=== PATIENT | male | born 1965 | race Caucasian/White ===

== ENCOUNTER 2020-01-20 07:25 | Emergency (ER) | payer SELFPAY ==
[2020-01-20 07:30] VITALS: BP 172/94; PULSE 78; RESP 16; O2SAT 100
[2020-01-20 08:03] VITALS: TEMP 36.7
--- NOTE | 2020-01-20 08:05 | ED.MALEGU ---
HPI - Male Genitourinary General Chief complaint: Urogenital-Male Stated complaint: blood clot in urine Time Seen by Provider: 01/20/20 08:01 Source: patient Mode of arrival: Ambulatory Limitations: no limitations History of Present Illness HPI Narrative: This is a 54-year-old male with no known medical issues comes in for blood clots in his urine. Patient noticed changes about 3:00 a.m. in the morning on Tuesday morning, he states he has continued to have blood in his urine since then. He denies any other symptoms other than some mild stinging with urination the urethra. He denies fevers, he denies any abdominal or flank pain. No nausea or vomiting, no testicular pain, no discharge, he has not had any frequency, and states that he has had some mild sense of urgency recently. Patient has not had similar symptoms in the past. He does not take any medications or anticoagulants regularly. He did have a ?hole in his heart? repaired at the age of [age] but denies any other past surgical history. He denies any known drug allergies. He does not smoke, occasional alcohol, occasional THC. He works as an journeyman electrician pv installer locally. Related Data Previous Rx's Medication Instructions Recorded sulfamethoxazole-trimethoprim 1 tab PO BID #20 tab 01/20/20 [Bactrim DS] Allergies Allergy/AdvReac Type Severity Reaction Status Date / Time No Known Drug Allergies Allergy Verified 01/20/20 07:41 Review of Systems Review of Systems ROS Unobtainable: All systems reviewed & are unremarkable except as noted in HPI and below Patient History Social History Smoking Status: Never smoker Smoking Status: Never smoker alcohol intake frequency: 0-2 drinks per day Substance Use Type: marijuana Exam Narrative Exam Narrative: GENERAL: Alert and oriented x three, well-nourished, well-appearing male in no acute distress. HEENT: Head normocephalic, atraumatic, EOMI, pupils reactive, face symmetric, moist mucous membranes NECK: Supple, full range of motion CARDIOVASCULAR: Regular rate and rhythm without murmurs, rubs or gallops. RESPIRATORY: Breath sounds equal bilaterally, no wheezes rales or rhonchi. ABDOMEN: Soft, nontender. Normoactive bowel sounds all 4 quadrants. No guarding or rebound, rigidity, no mass : No CVA tenderness EXTREMITIES: Normal range of motion, no clubbing or edema. Neurovascularly intact NEUROLOGICAL: Cranial nerves II through XII grossly intact. Moving all extremities. Normal gait. SKIN: Warm, dry, no petechiae, no rashes or lesions. Initial Vital Signs Initial Vital Signs: Vital Signs Pulse Rate 78 01/20/20 07:30 Respiratory Rate 16 01/20/20 07:30 Blood Pressure 172/94 H 01/20/20 07:30 Pulse Oximetry 100 01/20/20 07:30 Course Orders Ordered: ED Orders 01/20/20 08:07 Ictotest Urine Stat UA Complete [Urinalysis and Microscopic] Stat Urine Culture Stat Vital Signs Vital signs: Vital Signs - 8 hr 01/20/20 07:30 01/20/20 08:03 01/20/20 09:10 Temperature 98.1 F Pulse Rate 78 66 Respiratory Rate 16 16 Blood Pressure 172/94 H 127/71 Pulse Oximetry 100 100 MDM - Male Genitourinary Lab Data Attestation: I reviewed the patient's lab results. Labs: Lab Results 01/20/20 Range/Units 08:07 Urine Color Yenni Urine Appearance Cloudy Urine pH 6.5 (4.5-8.0) Ur Specific [place] 1.025 (1.000-1.035) Urine Protein 3+ H (Negative) Urine Glucose (UA) Negative (Negative) g/dL Urine Ketones 1+ H (NEGATIVE) Urine Occult Blood 3+ H (Negative) Urine Nitrate Positive (Negative) Urine Bilirubin 2+ H (NEGATIVE) Ur Bilirubin Confirm Negative (Negative) Urine Urobilinogen 4.0 H (0.2) E.U./dL Ur Leukocyte Esterase 1+ H (NEGATIVE) Urine RBC >100/hpf (0-5/HPF) Urine WBC 10-30/hpf H (0-5/HPF) Ur Squamous Epith Cells 1-5 /hpf (0-5/HPF) Urine Bacteria Moderate (10-30) H (None) Ur Culture Indicated? Specimen cultured [facility] Narrative Medical decision making narrative: Urinalysis is positive for gross hematuria as well as blood and rbc's greater than 100, he has leukocyte esterase as well as nitrate positive with 10-30 wbc's and moderate bacteria. Urine was sent for culture. Discussed with patient at this time I would treat him for a bladder infection. We did discuss that he does need follow-up with recheck of his urine to make sure that all hematuria has cleared and that his infection has cleared. If he continued to have asymptomatic hematuria he would require some additional workup in the future. He does not have a primary care was given options locally but encouraged to return to the ER if he has any new or worsening symptoms. Discharge Plan Departure Patient Disposition: Home Clinical Impression: Acute UTI Hematuria Qualifiers: Hematuria type: gross Qualified Code(s): R31.0 - Gross hematuria Discharge Date/Time: 01/20/20 08:50 Instructions: DI for Urinary Tract Infection (UTI), DI for Hematuria Activity Restrictions/Additional Instructions: Your urinalysis today shows changes consistent with a bladder infection or UTI. Start antibiotics today and take until completely gone. I would recommend follow-up in the next 10-14 days for recheck of your urine to make sure that hematuria and infection has cleared. You may call the physician provider number at [phone] to establish with a primary care or you may call the included provider for options to establish. If you develop fevers, back or abdominal pain, persistent vomiting, lightheadedness or passing out, inability to urinate, increasing frequency and large amounts of blood or other new or concerning symptoms return to the ER. Prescriptions: New sulfamethoxazole-trimethoprim [Bactrim DS] 800-160 mg tablet 1 tab PO BID Qty: 20 RF: 0
[2020-01-20 08:14] LABS: Bilirubin Urine UA 2+ (NEGATIVE); Glucose Urine UA NEGATIVE (Negative); Ketones Urine UA 1+ (NEGATIVE); Leukocyte Esterase Urine UA 1+ (NEGATIVE); Nitrite Urine UA POSITIVE (Negative); Occult Blood Urine UA 3+ (Negative); Protein Urine UA 3+ (Negative); Specific Gravity Urine UA 1.025 (1.000-1.035); pH Urine UA 6.5 (4.5-8.0)
[2020-01-20 08:21] LABS: Bacteria Urine Moderate (10-30); Culture Indicated Urine Specimen Cultured; RBC Urine >100/HPF (0-5/HPF); Squamous Epithelial Cell Urine 1-5 /HPF (0-5/HPF); WBC Urine 10-30/HPF (0-5/HPF)
[2020-01-20 08:48] LABS: Appearance Urine UA CLOUDY; Color Urine UA Amber
[2020-01-20 08:49] LABS: Ictotest Urine Negative (Negative)
[2020-01-20 09:10] VITALS: BP 127/71; PULSE 66; RESP 16; O2SAT 100
== END 2020-01-20 08:50 | disposition home or self-care (01) ==
PROVIDERS: Emergency Provider Emergency Medicine
DX: N30.01 Acute cystitis with hematuria (principal)
CPT/HCPCS: 81001; 87077; 87086; 87185; 87186; 99281; 99282

== ENCOUNTER 2020-02-24 23:42 | Emergency (ER) | payer OTHER, MEDICAID, SELFPAY ==
[2020-02-25 00:05] VITALS: BP 184/92; PULSE 72; RESP 18; TEMP 36.8; O2SAT 99; BMI 26.6
[2020-02-25] MEDS: SODIUM CHLORIDE 0.9% 1,000 ML 1000 ML IV (00:21)
[2020-02-25] MEDS: HYDROMORPHONE 0.5 MG INJ IV ×2 (00:22→02:05)
--- NOTE | 2020-02-25 00:22 | ED.ABDPAIN ---
HPI - Abdominal Pain General Chief Complaint: Abdominal Pain Stated Complaint: bladder inf, pain in testicle has tumor Time Seen by Provider: 02/24/20 23:46 Source: patient Mode of arrival: Ambulatory Limitations: no limitations History of Present Illness HPI narrative: 55-year-old male nonsmoker presents with significant lower abdominal pain, trouble bowel movements and right testicular pain worsening over the past day or 2. He was seen and evaluated by his primary care provider and had a urinalysis suggesting urine infection has been on antibiotics for a few days. Lab work suggested a slight bump in his creatinine to just over 2. He was recently seen here with a chief complaint of hematuria in not only had treatment for a urine infection but also referral to urology. He had an outpatient CT suggesting a posterior bladder mass that was concerning for malignancy. He denies any fever chills nor nausea or vomiting. He does still have the ability to make urine and denies any dysuria, frequency or urgency. MD complaint: abdominal pain Onset (ago): day(s) Related Data Previous Rx's Medication Instructions Recorded sulfamethoxazole-trimethoprim 1 tab PO BID #20 tab 01/20/20 [Bactrim DS] Allergies Allergy/AdvReac Type Severity Reaction Status Date / Time No Known Drug Allergies Allergy Verified 01/20/20 07:41 Review of Systems Constitutional Constitutional: Denies chills, Denies fatigue, Denies fever(s), Denies frequent falls, Denies lethargy and Denies weakness Eyes Eyes: Denies change in vision, Denies eye discharge, Denies irritation and Denies loss of vision ENT Ears, Nose, Mouth, and Throat: Denies change in voice, Denies dizziness, Denies neck pain, Denies sore throat and Denies throat swelling Cardiovascular Cardiovascular: Denies chest pain, Denies irregular heart rhythm, Denies lightheadedness, Denies palpitations, Denies dyspnea, Denies dyspnea on exertion and Denies orthopnea Respiratory Respiratory: Denies cough, Denies dyspnea, Denies dyspnea on exertion and Denies wheezing Gastrointestinal Gastrointestinal: Reports abdominal pain, Denies change in bowel habits, Denies diarrhea, Denies nausea and Denies vomiting Genitourinary Genitourinary: Reports testicular pain Musculoskeletal Musculoskeletal: Denies neck pain and Denies numbness Integumentary/Breasts Skin/Breast: Denies pruritus, Denies erythema, Denies rash and Denies wounds Neurologic Neurologic: Denies behavioral changes, Denies confusion, Denies dizziness, Denies frequent falls, Denies loss of vision, Denies numbness and Denies weakness Psychiatric Psychiatric: Denies anxiety, Denies behavioral changes, Denies confusion, Denies depression, Denies homicidal ideation and Denies suicidal ideation Endocrine Endocrine: Denies fatigue, Denies flushing and Denies palpitations Hematologic/Lymphatic Hematologic/Lymphatic: Denies easy bruising Allergic/Immunologic Allergic/Immunologic: Denies urticaria, Denies throat swelling and Denies wheezing Patient History Social History Smoking Status: Never smoker Smoking Status: Never smoker alcohol intake frequency: 0-2 drinks per day Substance Use Type: marijuana Exam Narrative Exam Narrative: GENERAL: [55] year old patient appears stated age. Well-nourished, well-developed patient, in mild distress. HEAD: Atraumatic. Normocephalic. EYES: Pupils equal round and reactive. Extraocular motions intact. No scleral icterus. No injection or drainage. ENT: Nose without bleeding, purulent drainage. Throat without erythema, tonsillar hypertrophy or exudate. Airway patent. NECK: Trachea midline. Non tender CARDIOVASCULAR: Regular rate and rhythm without murmurs, gallops, or rubs. RESPIRATORY: Clear to auscultation. Breath sounds equal bilaterally. No wheezes, rales, or rhonchi. GASTROINTESTINAL: Abdomen soft, non-tender, nondistended. : fully descended testicles, R tender to palpation, no swelling, redness or other external manifestation of disease EXTREMITIES: No edema or joint tenderness. BACK: Nontender without deformity or crepitance. No flank tenderness. NEURO: AOx3. SKIN: No rash or erythema of visible areas Initial Vital Signs Initial Vital Signs: Vital Signs Temperature 98.3 F 02/25/20 00:05 Pulse Rate 72 02/25/20 00:05 Respiratory Rate 18 02/25/20 00:05 Blood Pressure 184/92 H 02/25/20 00:05 Pulse Oximetry 99 02/25/20 00:05 Course Orders Ordered: Discontinued Medications Hydromorphone HCl (Dilaudid) 0.5 mg IV NOW ONE Stop: 02/25/20 00:16 Last Admin: 02/25/20 00:22 Dose: 0.5 mg Documented by: LATONIA Hydromorphone HCl (Dilaudid) 0.5 mg IV NOW ONE Stop: 02/25/20 02:02 Last Admin: 02/25/20 02:05 Dose: 0.5 mg Documented by: LATONIA Sodium Chloride (Normal Saline 0.9%) 1,000 mls @ 1,000 mls/hr IV BOLUS ONE Stop: 02/25/20 01:04 Last Admin: 02/25/20 02:20 Dose: Not Given Documented by: LATONIA Sodium Chloride (Normal Saline 0.9%) 1,000 mls @ 1,000 mls/hr IV BOLUS ONE Stop: 02/25/20 01:14 Last Infusion: 02/25/20 02:01 Dose: 0 mls/hr Documented by: Infusion: 02/25/20 00:56 Dose: 1,000 mls/hr Documented by: Infusion: 02/25/20 00:56 Dose: 0 mls/hr Documented by: Admin: 02/25/20 00:21 Dose: 1,000 mls/hr Documented by: LATONIA Consultations Consultation #1: Dr. Chiang contacted as customer operations specialist urologist for Dr. Flynn. Case reviewed and she requests transfer to [facility] and admission to hospitalist. Keep NPO Consultation #2: Dr. Moreno happy to accept. Vital Signs Vital signs: Vital Signs - 8 hr 02/25/20 00:05 02/25/20 02:56 Temperature 98.3 F Pulse Rate 72 75 Respiratory Rate 18 16 Blood Pressure 184/92 H Blood Pressure [Left Arm] 163/78 H Pulse Oximetry 99 99 MDM - Abdominal Pain Lab Data Result diagrams: 02/25/20 00:12 02/25/20 00:12 Labs: Lab Results 02/25/20 02/25/20 02/25/20 Range/Units 00:01 00:12 00:12 WBC 13.6 H (4.5-11.0) X10^3/uL RBC 3.68 L (4.5-5.9) X10^6/uL Hgb 11.3 L (13.5-17.5) g/dL Hct 33.8 L (41-53) % MCV 92.0 (80-100) fL MCH 30.8 (26-34) PG MCHC 33.5 (30-36) % RDW 12.3 (11.6-14.8) % Plt Count 396 (150-400) X10^3/uL Neut % (Auto) 81.2 H (50-75) % Lymph % (Auto) 10.1 L (25-40) % [place] % (Auto) 6.0 (3-14) % Eos % (Auto) 2.1 (2-4) % Baso % (Auto) 0.6 (0-2) % Neut # (Auto) 77891 H (6955-5988) /uL Lymph # (Auto) 1400 (1166-2102) /uL [place] # (Auto) 800 (0-900) /uL Eos # (Auto) 300 (0-450) /uL Baso # (Auto) 100 (0-100) /uL Sodium 138 (137-145) mmol/L Potassium 4.0 (3.4-5.1) mmol/L Chloride 107 (98-107) mmol/L Carbon Dioxide 22 (22-32) mmol/L BUN 40 H (9-20) mg/dL Creatinine 5.22 H (0.66-1.25) mg/dL Estimated GFR 11.5 L (>60) mL/min BUN/Creatinine Ratio 7.7 (6-22) Glucose 136 H (70-100) mg/dL Calcium 8.8 (8.4-10.2) mg/dL Urine Color Yellow Urine Appearance Clear Urine pH 6.0 (4.5-8.0) Ur Specific [place] 1.010 (1.000-1.035) Urine Protein Trace H (Negative) Urine Glucose (UA) Negative (Negative) g/dL Urine Ketones Negative (NEGATIVE) Urine Occult Blood 2+ H (Negative) Urine Nitrate Negative (Negative) Urine Bilirubin Negative (NEGATIVE) Urine Urobilinogen 0.2 (0.2) E.U./dL Ur Leukocyte Esterase Negative (NEGATIVE) Urine RBC 1-5/hpf (0-5/HPF) Urine WBC 1-5/hpf (0-5/HPF) Ur Squamous Epith Cells 0-1 /hpf (0-5/HPF) Urine Bacteria None seen (None) WBC Casts 0-1/lpf (None) Ur Culture Indicated? Cult not indicated COVID-19 PCR (Negative) 02/25/20 Range/Units 02:53 WBC (4.5-11.0) X10^3/uL RBC (4.5-5.9) X10^6/uL Hgb (13.5-17.5) g/dL Hct (41-53) % MCV (80-100) fL MCH (26-34) PG MCHC (30-36) % RDW (11.6-14.8) % Plt Count (150-400) X10^3/uL Neut % (Auto) (50-75) % Lymph % (Auto) (25-40) % [place] % (Auto) (3-14) % Eos % (Auto) (2-4) % Baso % (Auto) (0-2) % Neut # (Auto) (7054-9081) /uL Lymph # (Auto) (9750-7682) /uL [place] # (Auto) (0-900) /uL Eos # (Auto) (0-450) /uL Baso # (Auto) (0-100) /uL Sodium (137-145) mmol/L Potassium (3.4-5.1) mmol/L Chloride (98-107) mmol/L Carbon Dioxide (22-32) mmol/L BUN (9-20) mg/dL Creatinine (0.66-1.25) mg/dL Estimated GFR (>60) mL/min BUN/Creatinine Ratio (6-22) Glucose (70-100) mg/dL Calcium (8.4-10.2) mg/dL Urine Color Urine Appearance Urine pH (4.5-8.0) Ur Specific [place] (1.000-1.035) Urine Protein (Negative) Urine Glucose (UA) (Negative) g/dL Urine Ketones (NEGATIVE) Urine Occult Blood (Negative) Urine Nitrate (Negative) Urine Bilirubin (NEGATIVE) Urine Urobilinogen (0.2) E.U./dL Ur Leukocyte Esterase (NEGATIVE) Urine RBC (0-5/HPF) Urine WBC (0-5/HPF) Ur Squamous Epith Cells (0-5/HPF) Urine Bacteria (None) WBC Casts (None) Ur Culture Indicated? COVID-19 PCR Negative (Negative) Imaging Data US Testicles: Radiologist's Impression: [address] [address] Ultrasound Report Signed Patient: Anish Schultz [facility]#: [id number] : 1965Acct:[id number] Age/Sex: 55 / MDate of Service: 02/25/20 Loc: ED Accession Number: [id number] Procedure: US scrotum Ordering Provider: Juan Francisco Concepcion D.O. PROCEDURE: US SCROTUM INDICATIONS: RIGHT TESTICULAR PAIN TECHNIQUE: Real-time scanning was performed of the scrotum and testicles, with image documentation. Color and pulse Doppler interrogation was performed of both testicles. COMPARISON: None. FINDINGS: Right: Testicle is normal in size at 5.2 x 2.4 x 2.9 cm, and homogenous in echotexture. Epididymis is normal in overall size and morphology. No hydrocele or varicoceles. Overlying scrotal skin is normal in thickness. Left: Testicle is normal in size at 4.7 x 2.3 x 2.9 cm, and homogeneous in echotexture. Epididymis is normal in overall size and morphology. No hydrocele or varicoceles. Overlying scrotal skin is normal in thickness. Doppler: Color and pulse Doppler demonstrate normal and symmetric arterial flow in both testicles. IMPRESSION: 1. Normal sonographic study of the scrotum. Specifically, no evidence of testicular torsion. Concordant with preliminary interpretation. Dictated by: John Antoine M.D. on 02/25/2020 at 9:14 Approved by: John Antoine M.D. on 02/25/2020 at 9:23 CT scan - abdomen/pelvis: Radiologist's Impression: Chart [facility] Diagnostics DATE TYPE STATUS REF RANGE/AUTHOR Hx 02/25/20 12:03 ct kub 02/25/20 00:49 Ken Santizo 02/25/20 00:34 John AntoineAnish 55, M0 1965 DEP ER, Main ED 170.18cm 77.111kg BMI: 26.6kg/m? Abdominal Pain Search Chart No Data to Display ONSET 02/25/20 03:30 Anish Schultz 55 M [address] [address] [address] Scan Report Signed Patient: Anish Schultz [facility]#: [id number] : 1965Acct:[id number] Age/Sex: 55 / MDate of Service: 02/25/20 Loc: ED Accession Number: [id number] Procedure: CT abdomen pelvis wo con Ordering Provider: Juan Francisco Concepcion D.O. PROCEDURE: CT ABDOMEN PELVIS WO CON INDICATIONS: severe abdominal pain, known bladder outlet mass TECHNIQUE: Noncontrast 5 mm thick sections acquired from the diaphragms to the symphysis. 5 mm coronal and sagittal reformats were then performed. For radiation dose reduction, the following was used: automated exposure control, adjustment of mA and/or kV according to patient size. COMPARISON: None. FINDINGS: Image quality: Excellent. ABDOMEN: Lung bases: Lung bases are clear. Heart size is normal. Solid organs: Liver is normal in size. 3 x 2.3 cm hypodense lesion is noted involving anterior segment of right hepatic lobe concerning for metastatic liver lesion. Gallbladder is within normal limits. Pancreas is normal in contours. Spleen is normal in size. No adrenal nodules. Bilateral kidneys are enlarged with moderate to severe bilateral hydronephrosis and hydroureter extending to the level of bilateral UVJs. Mild bilateral perinephric fat stranding is also seen. Peritoneum and bowel: Unenhanced bowel loops demonstrate normal wall thickness and caliber. No free fluid or air. A small hiatal hernia is seen. Mild fecal stasis in the colon is noted. Nodes and vessels: No retroperitoneal or mesenteric adenopathy by size criteria. Aorta and inferior vena cava are normal in caliber. Miscellaneous: No ventral hernias. PELVIS: Genitourinary: Lobulated bladder wall thickening is noted more prominent involving posterior bladder wall and appears to encase bilateral UVJs, underlying bladder wall mass cannot be excluded. Enlarged prostate gland with mild mass effect of floor of urinary bladder is also seen. Miscellaneous: Left inguinal hernia is seen containing fat only. No gross inguinal lymphadenopathy is seen. Bones: No suspicious bony lesions. No vertebral body compression fractures. IMPRESSION: 1. Lobulated bladder wall thickening with concerning of posterior wall mass encasing bilateral UVJs, suggest clinical correlation. 2. Moderate to severe bilateral hydronephrosis and hydroureter with bilateral perinephric fat stranding extending to the level of UVJs. No obstructing renal stone is seen. 3. Hypodense lesion involving right hepatic lobe as above, concerning for liver metastatic disease. Dictated by: Ken Santizo M.D. on 02/25/2020 at 8:36 Approved by: eKn Santizo M.D. on 02/25/2020 at 8:42 Discharge Plan Departure Patient Disposition: [facility] Clinical Impression: Acute bilateral obstructive uropathy, Acute kidney injury Discharge Date/Time: 02/25/20 03:38 Prescriptions: No Action sulfamethoxazole-trimethoprim [Bactrim DS] 800-160 mg tablet 1 tab PO BID Qty: 20 RF: 0
[2020-02-25 00:27] LABS: Add Manual Diff / Slide Review NO; Basophils Absolute Auto 100 /uL (0-100); Basophils Percent Auto 0.6 % (0-2); Eosinophils Absolute Auto 300 /uL (0-450); Eosinophils Percent Auto 2.1 % (2-4); Hematocrit 33.8 % (41-53); Hemoglobin 11.3 g/dL (13.5-17.5); Lymphocytes Absolute Auto 1400 /uL (1100-4500); Lymphocytes Percent Auto 10.1 % (25-40); Mean Corpuscular HGB Conc 33.5 % (30-36); Mean Corpuscular Hemoglobin 30.8 PG (26-34); Monocytes Absolute Auto 800 /uL (0-900); Neutrophils Absolute Auto 11100 /uL (1500-7000); Neutrophils Percent Auto 81.2 % (50-75); Platelet Count 396 X10^3/uL (150-400); Red Blood Cell Count 3.68 X10^6/uL (4.5-5.9); Red Cell Distribution Width 12.3 % (11.6-14.8); White Blood Cell Count 13.6 X10^3/uL (4.5-11.0)
[2020-02-25 00:27] LABS: Bacteria Urine None Seen
[2020-02-25 00:33] LABS: BUN Creatinine Ratio 7.7 (6-22); Blood Urea Nitrogen 40 mg/dL (9-20); Calcium 8.8 mg/dL (8.4-10.2); Carbon Dioxide 22 mmol/L (22-32); Chloride 107 mmol/L (98-107); Estimated Glomerular Filt Rate 11.5 mL/min (>60); Glucose 136 mg/dL (70-100); HEMOLYSIS < 15 (0-50); Sodium 138 mmol/L (137-145)
--- NOTE | 2020-02-25 00:34 | DI.US.S_ITS ---
PROCEDURE: US SCROTUM INDICATIONS: RIGHT TESTICULAR PAIN TECHNIQUE: Real-time scanning was performed of the scrotum and testicles, with image documentation. Color and pulse Doppler interrogation was performed of both testicles. COMPARISON: None. FINDINGS: Right: Testicle is normal in size at 5.2 x 2.4 x 2.9 cm, and homogenous in echotexture. Epididymis is normal in overall size and morphology. No hydrocele or varicoceles. Overlying scrotal skin is normal in thickness. Left: Testicle is normal in size at 4.7 x 2.3 x 2.9 cm, and homogeneous in echotexture. Epididymis is normal in overall size and morphology. No hydrocele or varicoceles. Overlying scrotal skin is normal in thickness. Doppler: Color and pulse Doppler demonstrate normal and symmetric arterial flow in both testicles. IMPRESSION: 1. Normal sonographic study of the scrotum. Specifically, no evidence of testicular torsion. Concordant with preliminary interpretation. Dictated by: John Antoine M.D. on 02/25/2020 at 9:14 Approved by: John Antoine M.D. on 02/25/2020 at 9:23
[2020-02-25 00:40] LABS: Appearance Urine UA CLEAR; Bilirubin Urine UA NEGATIVE (NEGATIVE); Color Urine UA YELLOW; Glucose Urine UA NEGATIVE (Negative); Ketones Urine UA NEGATIVE (NEGATIVE); Leukocyte Esterase Urine UA NEGATIVE (NEGATIVE); Nitrite Urine UA NEGATIVE (Negative); Occult Blood Urine UA 2+ (Negative); Protein Urine UA TRACE (Negative); Urobilinogen Urine UA 0.2 E.U./dL (0.2)
--- NOTE | 2020-02-25 00:49 | DI.CT.S_ITS ---
PROCEDURE: CT ABDOMEN PELVIS WO CON INDICATIONS: severe abdominal pain, known bladder outlet mass TECHNIQUE: Noncontrast 5 mm thick sections acquired from the diaphragms to the symphysis. 5 mm coronal and sagittal reformats were then performed. For radiation dose reduction, the following was used: automated exposure control, adjustment of mA and/or kV according to patient size. COMPARISON: None. FINDINGS: Image quality: Excellent. ABDOMEN: Lung bases: Lung bases are clear. Heart size is normal. Solid organs: Liver is normal in size. 3 x 2.3 cm hypodense lesion is noted involving anterior segment of right hepatic lobe concerning for metastatic liver lesion. Gallbladder is within normal limits. Pancreas is normal in contours. Spleen is normal in size. No adrenal nodules. Bilateral kidneys are enlarged with moderate to severe bilateral hydronephrosis and hydroureter extending to the level of bilateral UVJs. Mild bilateral perinephric fat stranding is also seen. Peritoneum and bowel: Unenhanced bowel loops demonstrate normal wall thickness and caliber. No free fluid or air. A small hiatal hernia is seen. Mild fecal stasis in the colon is noted. Nodes and vessels: No retroperitoneal or mesenteric adenopathy by size criteria. Aorta and inferior vena cava are normal in caliber. Miscellaneous: No ventral hernias. PELVIS: Genitourinary: Lobulated bladder wall thickening is noted more prominent involving posterior bladder wall and appears to encase bilateral UVJs, underlying bladder wall mass cannot be excluded. Enlarged prostate gland with mild mass effect of floor of urinary bladder is also seen. Miscellaneous: Left inguinal hernia is seen containing fat only. No gross inguinal lymphadenopathy is seen. Bones: No suspicious bony lesions. No vertebral body compression fractures. IMPRESSION: 1. Lobulated bladder wall thickening with concerning of posterior wall mass encasing bilateral UVJs, suggest clinical correlation. 2. Moderate to severe bilateral hydronephrosis and hydroureter with bilateral perinephric fat stranding extending to the level of UVJs. No obstructing renal stone is seen. 3. Hypodense lesion involving right hepatic lobe as above, concerning for liver metastatic disease. Dictated by: Ken Santizo M.D. on 02/25/2020 at 8:36 Approved by: Ken Santizo M.D. on 02/25/2020 at 8:42
[2020-02-25 01:06] LABS: RBC Urine 1-5/HPF (0-5/HPF); Squamous Epithelial Cell Urine 0-1 /HPF (0-5/HPF); WBC Urine 1-5/HPF (0-5/HPF); White Blood Cell Casts Urine 0-1/LPF
[2020-02-25 01:07] LABS: Culture Indicated Urine Cult Not Indicated
[2020-02-25 02:56] VITALS: BP 163/78; PULSE 75; RESP 16; O2SAT 99
[2020-02-25 03:00] VITALS: BP 144/77; PULSE 82; RESP 16; O2SAT 98
[2020-02-25 03:30] VITALS: BP 153/74; PULSE 84; RESP 16; TEMP 37.1; O2SAT 98
[2020-02-25 03:52] LABS: COVID19 -Nasal RAPID Negative (Negative)
== END 2020-02-25 03:38 | disposition short-term general hospital (02) ==
PROVIDERS: Emergency Provider Emergency Medicine
DX: N13.8 Other obstructive and reflux uropathy (principal); N17.9 Acute kidney failure, unspecified; N50.811 Right testicular pain; Z11.59 Encounter for screening for other viral diseases
CPT/HCPCS: 36415; 51798; 74176; 76870; 80048; 81001; 85025; 87635; 96361; 96374; 96376; 99284; 99285; J1170

== ENCOUNTER → 2020-03-04 13:16 | Outpatient (CLI) | payer OTHER, MEDICAID, SELFPAY ==
[2020-03-05 09:47] LABS: COVID19 Sendout Not Detected (Not Detect)
== END ==
PROVIDERS: Visit Provider Registered Nurse
DX: Z01.812 Encounter for preprocedural laboratory examination (principal)
CPT/HCPCS: 87635

== ENCOUNTER 2020-06-11 14:50 | Emergency (ER) | payer OTHER, MEDICAID, SELFPAY ==
[2020-06-11] VITALS (10 sets, daily range): BP systolic 104–148; BP diastolic 59–78; PULSE 77–94; RESP 5–21; TEMP 36.4; O2SAT 95–100
[2020-06-11] MEDS: SODIUM CHLORIDE 0.9% 1,000 ML 1000 ML IV (15:21)
[2020-06-11] MEDS: LIDOCAINE 1% (PF) 2 ML INJ (15:21)
[2020-06-11] MEDS: HYDROMORPHONE 0.5 MG INJ IV ×2 (15:22→17:19)
[2020-06-11] MEDS: KETOROLAC 60 MG/2 ML VIAL 15 MG IV (15:22)
[2020-06-11] MEDS: ONDANSETRON 4 MG/2 ML INJ IV (15:23)
[2020-06-11 15:44] LABS: Hemoglobin 10.3 g/dL (13.5-17.5); Mean Corpuscular HGB Conc 34.4 % (30-36); Mean Corpuscular Hemoglobin 30.3 PG (26-34); Mean Corpuscular Volume 88.1 fL (80-100); Platelet Count 355 X10^3/uL (150-400); Red Blood Cell Count 3.41 X10^6/uL (4.5-5.9); Red Cell Distribution Width 18.7 % (11.6-14.8)
[2020-06-11 15:54] LABS: Alanine Aminotransferase 18 IU/L (<50); Albumin 4.2 g/dL (3.5-5.0); Albumin Globulin Ratio 1.3 (1.0-2.8); Alkaline Phosphatase 92 U/L (38-126); Aspartate Aminotransferase 18 IU/L (17-59); BUN Creatinine Ratio 25.5 (6-22); Bilirubin Total 0.5 mg/dL (0.2-1.3); Blood Urea Nitrogen 24 mg/dL (9-20); Calcium 9.4 mg/dL (8.4-10.2); Carbon Dioxide 26 mmol/L (22-32); Chloride 98 mmol/L (98-107); Estimated Glomerular Filt Rate > 60.0 mL/min (>60); Globulin 3.2 g/dL (1.7-4.1); Glucose 119 mg/dL (70-100); HEMOLYSIS < 15 (0-50); Lactate (Lactic Acid) 1.8 mmol/L (0.7-2.1); Potassium 3.6 mmol/L (3.4-5.1); Sodium 136 mmol/L (137-145); Total Protein 7.4 g/dL (6.3-8.2)
[2020-06-11 15:56] LABS: Add Manual Diff / Slide Review YES; White Blood Cell Count 1.8 X10^3/uL (4.5-11.0)
[2020-06-11 16:08] LABS: Neutrophils Absolute Manual 72 /uL (3000-5900); Total Cells Counted 50
[2020-06-11 16:09] LABS: Anisocytosis 1+
--- NOTE | 2020-06-11 16:41 | ED.GENADULT ---
HPI - General Adult General Chief complaint: Upper Respiratory Symptoms Stated complaint: states can't swallow Time Seen by Provider: 06/11/20 14:54 Source: patient Mode of arrival: Ambulatory History of Present Illness HPI narrative: 5-year-old gentleman a history of bladder cancer currently finishing around 4 of 6 of chemotherapy. Presents with increasingly sore throat for the last 2 days. It is becoming so sore he is having trouble swallowing. He describes no fevers. Has had a slight nonproductive cough, no chills no abdominal pain no chest pain or palpitations. He does not feel like food is getting stuck he does feel like his taste is significantly diminished. Had 6 recent Covid tests all of which have been negative, all part of his cancer care. His son accompanies him and notes that after 2 days of chemo on Tuesday and Tuesday usually is feeling better by Tuesday. This time we are to Tuesday and he is continuing to feel worse. He beginning to feel a bit dehydrated but notes that he is still making urine and is having no difficulties with diarrhea or significant constipation. Related Data Previous Rx's Medication Instructions Recorded clotrimazole 10 mg MM 5XD #100 tab 06/11/20 Allergies Allergy/AdvReac Type Severity Reaction Status Date / Time No Known Drug Allergies Allergy Verified 06/11/20 15:04 Review of Systems Review of Systems Narrative: Remainder of review of systems including constitutional, ENT, cardiovascular, respiratory, GI, , musculoskeletal, skin, neurologic and psychiatric systems reviewed and are unremarkable except as noted in HPI. Patient History Medical History Bladder cancer (Acute) Social History Smoking Status: Current some day smoker Smoking Status: Current some day smoker alcohol intake frequency: 0-2 drinks per day Substance Use Type: marijuana Exam Narrative Exam Narrative: General: Thin, able speak in full sentences but clearly has difficulty swallowing due to throat pain HEENT: Moist mucous membranes, normal sclera with reactive pupils, glossy red tongue, erythematous pharynx with white plaques over the left tonsillar pillars pair it minor cervical adenopathy. Respiratory: Lungs are clear to auscultation, no wheezing no rales no rhonchi. Full and symmetrical air movement Chest: Port, left upper anterior wall, healing nicely Cardiac: Regular rate and rhythm no murmurs no bruits Abdomen: Soft nontender good bowel tones, no flank pain Skin: Warm and dry, no rashes Neurologic: Grossly neurologically intact with no obvious asymmetries or abnormalities, globally weak Extremities: No trauma, well perfused Psych: Cooperative, appropriate insight and affect Initial Vital Signs Initial Vital Signs: Vital Signs Pulse Rate 94 H 06/11/20 14:52 Pulse Oximetry 98 06/11/20 14:52 Course Orders Ordered: ED Orders 06/11/20 15:00 Throat Culture Stat 06/11/20 15:30 Complete Blood Count AUTO DIFF Stat Comprehensive Metabolic Panel Stat Lactate (Lactic Acid) Stat 06/11/20 15:50 Blood Culture Stat Heparin Sodium (Porcine) (Heparin Flush (Port)) 500 unit IV PRN PRN PRN Reason: Flush Discontinued Medications Clotrimazole (Mycelex Yumiko) 10 mg PO NOW ONE Stop: 06/11/20 17:05 Last Admin: 06/11/20 17:19 Dose: 10 mg Documented by: PANCHITO Hydromorphone HCl (Dilaudid) 0.5 mg IV NOW ONE Stop: 06/11/20 15:11 Last Admin: 06/11/20 15:22 Dose: 0.5 mg Documented by: JOANNE Hydromorphone HCl (Dilaudid) 0.5 mg IV NOW ONE Stop: 06/11/20 17:05 Last Admin: 06/11/20 17:19 Dose: 0.5 mg Documented by: PANCHITO Sodium Chloride (Normal Saline 0.9%) 1,000 mls @ 1,000 mls/hr IV BOLUS ONE Stop: 06/11/20 16:09 Last Infusion: 06/11/20 17:12 Dose: 0 mls/hr Documented by: Admin: 06/11/20 15:21 Dose: 1,000 mls/hr Documented by: JOANNE Ketorolac Tromethamine (Toradol) 15 mg IV NOW ONE Stop: 06/11/20 15:11 Last Admin: 06/11/20 15:22 Dose: 15 mg Documented by: JOANNE Lidocaine HCl (Xylocaine 1% (Pf)) 2 ml INJ NOW ONE Stop: 06/11/20 15:11 Last Admin: 06/11/20 15:21 Dose: 2 ml Documented by: JOANNE Methylprednisolone (Solu-Medrol 125 Mg Vial) 125 mg IV NOW ONE Stop: 06/11/20 17:05 Last Admin: 06/11/20 17:19 Dose: 125 mg Documented by: PANCHITO Ondansetron HCl (Zofran) 4 mg IV NOW ONE Stop: 06/11/20 15:11 Last Admin: 06/11/20 15:23 Dose: 4 mg Documented by: JOANNE Vital Signs Vital signs: Vital Signs - 8 hr 06/11/20 14:52 06/11/20 14:55 06/11/20 14:58 Temperature 97.5 F L Pulse Rate 94 H 88 89 Respiratory Rate 13 17 Blood Pressure 133/78 104/59 L Pulse Oximetry 98 100 100 06/11/20 15:00 06/11/20 15:30 06/11/20 16:00 Temperature Pulse Rate 89 90 78 Respiratory Rate 15 18 16 Blood Pressure 148/77 H 123/73 Pulse Oximetry 100 100 98 06/11/20 16:01 06/11/20 16:30 06/11/20 17:00 Temperature Pulse Rate 81 77 86 Respiratory Rate 13 5 L 21 Blood Pressure 143/74 H 138/77 144/76 H Pulse Oximetry 95 98 100 06/11/20 17:30 Temperature Pulse Rate 86 Respiratory Rate 17 Blood Pressure 141/73 H Pulse Oximetry 99 Medical Decision Making Medical Records Medical records reviewed: Yes I reviewed the patient's medical records. Lab Data Lab results reviewed: Yes I reviewed the patient's lab results. Result diagrams: 06/11/20 15:30 06/11/20 15:30 Labs: Lab Results 06/11/20 06/11/20 06/11/20 Range/Units 15:30 15:30 15:30 WBC 1.8 L* (4.5-11.0) X10^3/uL RBC 3.41 L (4.5-5.9) X10^6/uL Hgb 10.3 L (13.5-17.5) g/dL Hct 30.0 L (41-53) % MCV 88.1 (80-100) fL MCH 30.3 (26-34) PG MCHC 34.4 (30-36) % RDW 18.7 H (11.6-14.8) % Plt Count 355 (150-400) X10^3/uL Neut % (Auto) Not Reportable Lymph % (Auto) Not Reportable Mccone % (Auto) Not Reportable Eos % (Auto) Not Reportable Baso % (Auto) Not Reportable Lymph # (Auto) Not Reportable Mccone # (Auto) Not Reportable Baso # (Auto) Not Reportable Total Counted 50 Seg Neutrophils % 4.0 L (38-70) % Lymphocytes % (Manual) 88.0 H (25-45) % Monocytes % (Manual) 6.0 (2-11) % Eosinophils % (Manual) 2.0 (2-4) % Neutrophils # (Manual) 72 L (7867-7298) /uL RBC Morphology See below Anisocytosis 1+ H Sodium 136 L (137-145) mmol/L Potassium 3.6 (3.4-5.1) mmol/L Chloride 98 (98-107) mmol/L Carbon Dioxide 26 (22-32) mmol/L BUN 24 H (9-20) mg/dL Creatinine 0.94 (0.66-1.25) mg/dL Estimated GFR > 60.0 (>60) mL/min BUN/Creatinine Ratio 25.5 H (6-22) Glucose 119 H (70-100) mg/dL Lactate 1.8 (0.7-2.1) mmol/L Calcium 9.4 (8.4-10.2) mg/dL Total Bilirubin 0.5 (0.2-1.3) mg/dL AST 18 (17-59) IU/L ALT 18 (<50) IU/L Alkaline Phosphatase 92 (38-126) U/L Total Protein 7.4 (6.3-8.2) g/dL Albumin 4.2 (3.5-5.0) g/dL Globulin 3.2 (1.7-4.1) g/dL Albumin/Globulin Ratio 1.3 (1.0-2.8) Point of Care Testing Rapid Strep A Negative Point of care testing: Point of Care Testing Rapid Strep A Negative MDM Narrative Medical decision making narrative: 55-year-old gentleman with increasing throat pain for the last 48 hours. Rapid strep is negative. White count is low at 1.8 consistent of his chemotherapy pooja. No evidence of sepsis at this time. He is feeling better after hydration, IV Dilaudid and IV Toradol. Clinical exam is most consistent with thrush rather than an acute bacterial pharyngitis. A throat culture has been sent and if it does return positive then antibiotics will need to be started. In the meantime will continue to treat this is thrush with clotrimazole troches is. Will also give him a single dose of steroids to help with inflammation and pain so that he is able to keep himself hydrated. Discussed using Tylenol and trying the liquid caps cut open with the liquid in a small bit of fluid so that swallowing isn't as much of an issue. He has both pain and nausea medicine at home We did discuss sepsis and concerns for infection in light of his chemotherapy. I encouraged him to return with any worsening symptoms and would have a low threshold for beginning antibiotic treatment as well. Discharge Plan Departure Patient Disposition: Home Clinical Impression: Esophageal thrush, Oral thrush Bladder cancer Qualifiers: Bladder location: unspecified site Qualified Code(s): C67.9 - Malignant neoplasm of bladder, unspecified Neutropenia Qualifiers: Neutropenia type: secondary to cancer chemotherapy Qualified Code(s): D70.1 - Agranulocytosis secondary to cancer chemotherapy Instructions: DI for Thrush, Sarah Esophagitis Activity Restrictions/Additional Instructions: Thank you for coming in today Your clinical exam looks like you have thrush of both your mouth and down your esophagus. I will give you a prescription for clotrimazole troches his. The idea is to let the meld in your mouth and keep the liquid close to your mouth your tongue and let it dribble down your throat to treat the surface where the yeast is growing For pain, Tylenol might actually be effective for you. Using liquid Tylenol caps and cutting them open to get the liquid out may be easier than trying to swallow them. You can use both pain and nausea medicine that you have available to you at home. It is important to try to keep as hydrated as possible. If you have any signs or symptoms that are getting worse including weakness, confusion any fevers chills or sweats you need to return to the emergency room immediately I hope you heal quickly Prescriptions: New clotrimazole 10 mg yumiko 10 mg MM 5XD Qty: 100 RF: 0
[2020-06-11] MEDS: CLOTRIMAZOLE TROCHE 10 MG PO (17:19)
[2020-06-11] MEDS: methylPREDNISolone 125 MG/2 ML VIAL IV (17:19)
[2020-06-14 05:48] LABS: Acinetobacter baumannii Not Detected (Not Detect); Enterobacteriaceae species Not Detected (Not Detect); Enterococcus species Not Detected (Not Detect); Listeria monocytogenes Not Detected (Not Detect); Staphylococcus species Not Detected (Not Detect); Streptococcus agalactiae (Gr B Not Detected (Not Detect); Streptococcus pneumonia Not Detected (Not Detect); Streptococcus pyogenes (Gr A) Not Detected (Not Detect); Streptococcus species Not Detected (Not Detect)
[2020-06-14 05:49] LABS: Candida albicans Not Detected (Not Detect); Candida glabrata Not Detected (Not Detect); Candida krusei Not Detected (Not Detect); Candida parapsilosis Not Detected (Not Detect); Candida tropicalis Not Detected (Not Detect); E. coli Not Detected (Not Detect); Enterobacter cloacae complex Not Detected (Not Detect); Haemophilus influenzae Not Detected (Not Detect); Neisseria meningitidis Not Detected (Not Detect); Proteus species Not Detected (Not Detect); Pseudomonas aeruginosa Not Detected (Not Detect); Serratia marcescens Not Detected (Not Detect)
== END 2020-06-11 18:23 | disposition home or self-care (01) ==
PROVIDERS: Emergency Provider Emergency Medicine
DX: B37.81 Candidal esophagitis (principal); C67.9 Malignant neoplasm of bladder, unspecified; B37.0 Candidal stomatitis; D70.1 Agranulocytosis secondary to cancer chemotherapy; R05 Cough
CPT/HCPCS: 36415; 80053; 83605; 85025; 87040; 87070; 87150; 87205; 87880; 96361; 96374; 96375; 96376; 99284; J1170; J1642; J1885; J2405; J2930

== ENCOUNTER → 2020-11-06 10:06 | Outpatient (CLI) | payer OTHER, MEDICAID, SELFPAY ==
--- NOTE | 2020-11-06 10:21 | DI.RAD.S_ITS ---
PROCEDURE: XR LUMBAR SPINE 2-3V INDICATIONS: lower back pain TECHNIQUE: 3 views of the lumbar spine were acquired. COMPARISON: [facility], CT, CT KUB, 04/09/2020, 12:28. FINDINGS: Bones: 5 [id number] vertebrae are present. There is loss of normal lumbar lordosis. No acute vertebral body compression fractures. No suspicious bony lesions. Multilevel lumbar spondylitic changes most pronounced at L4-5 and L5-S1. There is moderate disc space loss and degenerative endplate changes at L5-S1. Moderate minimal lower lumbar facet arthrosis. Suggestion of moderate narrowing of the neural foramen at L5-S1. Soft tissues: Overlying bowel gas pattern is normal. No suspicious soft tissue calcifications. IMPRESSION: 1. Lumbar spondylitic cute osseous abnormalities. 2. Moderate multilevel lumbar spondylosis most severe at L4-5 and L5-S1 with suspected moderate neural foraminal narrowing at L5-S1. Dictated by: Joel Bojorquez M.D. on 11/07/2020 at 13:07 Approved by: Joel Bojorquez M.D. on 11/07/2020 at 13:10
[2020-11-06 11:00] LABS: Add Manual Diff / Slide Review NO; Basophils Absolute Auto 200 /uL (0-100); Basophils Percent Auto 1.2 % (0-2); Eosinophils Absolute Auto 400 /uL (0-450); Eosinophils Percent Auto 2.8 % (2-4); Hematocrit 32.1 % (41-53); Hemoglobin 10.2 g/dL (13.5-17.5); Lymphocytes Absolute Auto 1700 /uL (1100-4500); Lymphocytes Percent Auto 12.5 % (25-40); Mean Corpuscular HGB Conc 31.8 % (30-36); Mean Corpuscular Hemoglobin 27.4 PG (26-34); Mean Corpuscular Volume 86.3 fL (80-100); Monocytes Absolute Auto 1000 /uL (0-900); Monocytes Percent Auto 6.9 % (3-14); Neutrophils Absolute Auto 10500 /uL (1500-7000); Neutrophils Percent Auto 76.6 % (50-75); Platelet Count 550 X10^3/uL (150-400); Red Blood Cell Count 3.72 X10^6/uL (4.5-5.9); Red Cell Distribution Width 15.9 % (11.6-14.8); White Blood Cell Count 13.7 X10^3/uL (4.5-11.0)
[2020-11-06 11:13] LABS: Alanine Aminotransferase 13 IU/L (<50); Albumin 3.7 g/dL (3.5-5.0); Albumin Globulin Ratio 0.9 (1.0-2.8); Alkaline Phosphatase 92 U/L (38-126); Aspartate Aminotransferase 20 IU/L (17-59); BUN Creatinine Ratio 20.7 (6-22); Bilirubin Total 0.2 mg/dL (0.2-1.3); Blood Urea Nitrogen 36 mg/dL (9-20); Calcium 10.7 mg/dL (8.4-10.2); Carbon Dioxide 23 mmol/L (22-32); Chloride 105 mmol/L (98-107); Cholesterol 181 mg/dL (140-199); Estimated Glomerular Filt Rate 40.8 mL/min (>60); Globulin 4.2 g/dL (1.7-4.1); Glucose 142 mg/dL (70-100); HDL Cholesterol 32 mg/dL (40-60); HEMOLYSIS < 15 (0-50); LDL Cholesterol Calculated 129 mg/dL (<100); Potassium 3.5 mmol/L (3.4-5.1); Sodium 136 mmol/L (137-145); Total Protein 7.9 g/dL (6.3-8.2); Triglycerides 101 mg/dL (35-150)
== END ==
PROVIDERS: PCP Registered Nurse; Referring Provider Registered Nurse; Visit Provider Registered Nurse
DX: Z00.00 Encounter for general adult medical examination without abnormal findings (principal); Z85.51 Personal history of malignant neoplasm of bladder; M54.5 Low back pain
CPT/HCPCS: 36415; 72100; 80053; 80061; 85025

== ENCOUNTER 2020-12-08 14:15 | Outpatient (RCR) | payer OTHER, MEDICAID, SELFPAY ==
--- NOTE | 2020-11-14 13:13 | PT.OPPOC ---
Physical, Occupational & Speech Therapy At [facility] Current Diagnoses Low back pain (11/14/20) Strain of adductor muscle, fascia and tendon of right thigh, initial encounter (11/14/20) Visit Care Team Role Provider Type JONATHAN Renner Attending Provider Advanced Behavioral Intervention Specialist Primary Care Provider Referring Provider Specialty: Medical Address: [address] [place] [address], [facility] Email: [email or web address] Plan Of Care PT-OP-T Assessment and Plan Start: 11/14/20 11:57 Freq: Status: Active Protocol: Document 11/14/20 12:45 AMB (Rec: 11/15/20 11:12 AMB [email or web address]) Physical Therapy Assessment Rehab Potential Rehabilitation Potential Fair Evaluation Complexity Number of Personal Factors/Comorbidities 1-2 Number of Body Systems Impaired 4 or More Clinical Presentation at Evaluation Evolving Impairments Impairments Functional Activities, Functional Mobility,Pain,ROM, Strength Goals Three Impairment HEP Short Term Goal (STG) Anish with be independent and consistent with core stabilization and LE stretching home exercise program. STG Duration 4 weeks Two Impairment Strength Short Term Goal (STG) Anish will improve his hip flexor strength to at least 4/ 10. STG Duration 4 weeks Contact Lens Blocker And Cutter Goal (LTG) Anish will lift 20 pounds from floor to waist height with good body mechanics without an increase in pain. LTG Duration 8 weeks One Impairment Activity tolerance Short Term Goal (STG) Anish will sleep for 4 hours without waking due to pain. STG Duration 4 weeks Fpc Goal (LTG) Anish will stand for 30 minutes wiht pain of 5/10 or less. LTG Duration 8 weeks Assessment Summary Assessment Anish attends physical therapy with significant R LE pain. He is under the impression the pain is from lymph node removal at the time of his bladder removal back in June. But the pain did not start until September. He is seeing his oncologist next week. He did recently have a lumbar X-ray which did show suspected foraminal narrowing at L5S1. He does have weakness in his hip, but the high level of pain he is having would be plenty to decrease his ability to activate those muscles. He will benefit from physical therapy for appropriate core stabilization, LE strengthening manual therapy and modalities to reduce his pain and improve his activity tolerance. Physical Therapy Plan Frequency and Duration Frequency of Treatment 2x/Week Duration of Treatment 8 weeks Plan of Care Start Date 11/14/20 Plan of Care End Date 01/09/21 Therapeutic Interventions Therapeutic Interventions Home Exercise Program,Manual Therapy,Neuromuscular Re- education,Self-Care/Home Management,Therapeutic Activities,Therapeutic Exercises Modalities Cold Pack/Ice Massage,Electric Stimulation,Hot Packs, Traction- Mechanical, Ultrasound Next Visit Focus/Plan Next Note Type Treatment Note Next Visit Plan Begin HEP instruction, pt felt long axis distraction of R leg helped decrease pain Plan of Care Dates Plan of Care Start Date 11/14/20 Plan of Care End Date 01/09/21 Electronically Signed by: Isa Baker, KAILA 11/15/20 0207 Please Sign and Return: I have reviewed this Plan of Care and certify that the skilled therapy services above are required to meet the patient?s needs. Physician Signature Date Printed Name and Credentials Clinical Instructor Signature Printed Name and Credentials
--- NOTE | 2020-11-14 13:13 | PT.OIE ---
Current Diagnoses Low back pain (11/14/20) Strain of adductor muscle, fascia and tendon of right thigh, initial encounter (11/14/20) Past Medical History (Last Reviewed 11/06/20 @ 20:35 by JONATHAN Renner) Bladder cancer Visit Care Team Role Provider Type JONATHAN Renner Attending Provider Advanced Home Lending Officer Primary Care Provider Referring Provider Specialty: Medical Address: [address] [place] [address], [facility] Email: [email or web address] Physical Therapy Initial Evaluation PT-OP-A Visit Information Start: 11/14/20 11:57 Freq: Status: Active Protocol: Document 11/14/20 12:45 AMB (Rec: 11/15/20 10:41 AMB [email or web address]) Out-Patient Physical Therapy Visit Information Visit Information Visit Type Initial Evaluation Visit Start Time 12:45 Visit Stop Time 13:30 Total Visit Minutes 45 Visit Number 1 PT-OP-B Current Condition Start: 11/14/20 11:57 Freq: Status: Active Protocol: Document 11/14/20 12:43 AMB (Rec: 11/14/20 13:05 AMB [id number]) Current Condition History of Current Condition Onset Date September 2020 Current Complaints R leg/back pain/numbness History of Current Condition Removed bladder and removed lymph nodes in July 06, 2020 but pain hadn't started at this point- did not difficulty lifting leg up post op. Pain has started the third month after surgery. Groin is the worst pain. Numbness down anterior thigh, worst at the groin. Denies swelling. Woke up at 3:30 am in September and sat straight up because the pain was acute at that time. Denies lifting/ any activity in the day before that would have triggered the pain. Pt very adamant that pain is a result of surgery, and is not coming from back, but did have lumbar Xray, pt states no one has followed up with him on the results of that yet. Prior Treatments and Tests Lumbar X-ray: 11/06/20: Moderate multilevel lumbar spondylosis most severe at L4- 5 and L5-S1 with suspected moderate neural foraminal narrowing at L5-S1. Prior Functional Status Baseline Function- ADL's Independent Baseline Function- Mobility Independent Current Functional Impairments (Reported) Functional Limitations- ADL's Pt reports considerable difficulty sleeping, standing for more than 15 minutes Personal Factors Other Personal Factors That May Effect Recent bladder cancer with Therapy/Recovery removal, previously had chemotherapy for bladder cancer PT-OP-C Subjective Start: 11/14/20 11:57 Freq: Status: Active Protocol: Document 11/14/20 12:45 AMB (Rec: 11/15/20 10:41 AMB [email or web address]) Patient Questionnaires Oswestry Low Back Index Oswestry Score 60 Oswestry Impairment 60 to 79% Impaired (Score 60- 79) OP-PT Pain Assessment Pain Assessment Grid Paper Pain Assessment Grid Completed Yes Location Right Groin Pain Location Details right groin- goes up into back and down into thigh Intensity 7 Scale Used Numeric (0 - 10) Description Sharp Description- Other numb Frequency Constant PT-OP-G Mobility & Gait Start: 11/14/20 11:57 Freq: Status: Active Protocol: Document 11/14/20 12:45 AMB (Rec: 11/15/20 10:53 AMB [email or web address]) OP Gait Assessment Comments Gait Comments Antalgic gait- decreased weightbearing through the right PT-OP-J Posture/Palpation/Skin Start: 11/14/20 11:57 Freq: Status: Active Protocol: Document 11/14/20 12:45 AMB (Rec: 11/15/20 10:53 AMB [email or web address]) Palpation Assessment Location Two Palpation Location R thigh Palpation Findings Tenderness Palpation Details Pt with significant tenderness and pain throughout R anterior hip, not as much through adductors, more iliopsoas. Scar beneath umbilicus and laproscopic at abdomen, denies pain with palpation at scar sites. One Palpation Location lumbar spine Palpation Details pt denies pain with PAs, stiffness especially at L5S1 PT-OP-K Range of Motion Start: 11/14/20 11:57 Freq: Status: Active Protocol: Document 11/14/20 12:45 AMB (Rec: 11/15/20 10:53 AMB [email or web address]) Lumbar Spine Range of Motion Lumbar Spine Active Degrees Testing Position Standing Flexion 50 Extension 10 Lateral Flexion Left 15 Lateral Flexion Right 20 Comments pain with extension, flexion feels better Hip Goniometric Range of Motion Hip Right Passive Comments No pain and full ROM with hip er/ir, hip extension mildly limited by pain PT-OP-M Strength Start: 11/14/20 11:57 Freq: Status: Active Protocol: Document 11/14/20 12:45 AMB (Rec: 11/15/20 10:53 AMB [email or web address]) Hip Strength Hip Manual Muscle Testing Right Flexion (L2) 2+ Poor+ Abduction 3- Fair- Adduction 3- Fair- Left Flexion (L2) 4+ Good+ Abduction 4+ Good+ Adduction 4+ Good+ Knee Strength Knee Manual Muscle Testing Right Flexion (S2) 5 Normal Extension (L3) 5 Normal Left Flexion (S2) 5 Normal Extension (L3) 5 Normal Ankle/Foot Strength Ankle and Foot Manual Muscle Testing Right Dorsiflexion (L4) 5 Normal Left Dorsiflexion (L4) 5 Normal Toe Strength Toe Manual Muscle Testing Right Great Toe Extension 4 Good Left Great Toe Flexion 5 Normal PT-OP-T Assessment and Plan Start: 11/14/20 11:57 Freq: Status: Active Protocol: Document 11/14/20 12:45 AMB (Rec: 11/15/20 11:12 AMB [email or web address]) Physical Therapy Assessment Rehab Potential Rehabilitation Potential Fair Evaluation Complexity Number of Personal Factors/Comorbidities 1-2 Number of Body Systems Impaired 4 or More Clinical Presentation at Evaluation Evolving Impairments Impairments Functional Activities, Functional Mobility,Pain,ROM, Strength Goals Three Impairment HEP Short Term Goal (STG) Anish with be independent and consistent with core stabilization and LE stretching home exercise program. STG Duration 4 weeks Two Impairment Strength Short Term Goal (STG) Anish will improve his hip flexor strength to at least 4/ 10. STG Duration 4 weeks Welder Explosion Goal (LTG) Anish will lift 20 pounds from floor to waist height with good body mechanics without an increase in pain. LTG Duration 8 weeks One Impairment Activity tolerance Short Term Goal (STG) Anish will sleep for 4 hours without waking due to pain. STG Duration 4 weeks Fpc Goal (LTG) Anish will stand for 30 minutes wiht pain of 5/10 or less. LTG Duration 8 weeks Assessment Summary Assessment Anish attends physical therapy with significant R LE pain. He is under the impression the pain is from lymph node removal at the time of his bladder removal back in June. But the pain did not start until September. He is seeing his oncologist next week. He did recently have a lumbar X-ray which did show suspected foraminal narrowing at L5S1. He does have weakness in his hip, but the high level of pain he is having would be plenty to decrease his ability to activate those muscles. He will benefit from physical therapy for appropriate core stabilization, LE strengthening manual therapy and modalities to reduce his pain and improve his activity tolerance. Physical Therapy Plan Frequency and Duration Frequency of Treatment 2x/Week Duration of Treatment 8 weeks Plan of Care Start Date 11/14/20 Plan of Care End Date 01/09/21 Therapeutic Interventions Therapeutic Interventions Home Exercise Program,Manual Therapy,Neuromuscular Re- education,Self-Care/Home Management,Therapeutic Activities,Therapeutic Exercises Modalities Cold Pack/Ice Massage,Electric Stimulation,Hot Packs, Traction- Mechanical, Ultrasound Next Visit Focus/Plan Next Note Type Treatment Note Next Visit Plan Begin HEP instruction, pt felt long axis distraction of R leg helped decrease pain
--- NOTE | 2020-12-08 15:37 | PT.OTN ---
Current Diagnoses Low back pain (12/08/20) Strain of adductor muscle, fascia and tendon of right thigh, initial encounter (12/08/20) Physical Therapy Treatment Note PT-OP-A Visit Information Start: 11/14/20 11:57 Freq: Status: Active Protocol: Document 12/08/20 14:14 AMB (Rec: 12/08/20 15:37 AMB [id number]) Out-Patient Physical Therapy Visit Information Visit Information Visit Type Treatment Note Visit Start Time 14:15 Visit Stop Time 15:00 Total Visit Minutes 45 Visit Number 2 PT-OP-B Current Condition Start: 11/14/20 11:57 Freq: Status: Active Protocol: Document 11/14/20 12:43 AMB (Rec: 11/14/20 13:05 AMB [id number]) Current Condition History of Current Condition Onset Date September 2020 Current Complaints R leg/back pain/numbness History of Current Condition Removed bladder and removed lymph nodes in July 06, 2020 but pain hadn't started at this point- did not difficulty lifting leg up post op. Pain has started the third month after surgery. Groin is the worst pain. Numbness down anterior thigh, worst at the groin. Denies swelling. Woke up at 3:30 am in September and sat straight up because the pain was acute at that time. Denies lifting/ any activity in the day before that would have triggered the pain. Pt very adamant that pain is a result of surgery, and is not coming from back, but did have lumbar Xray, pt states no one has followed up with him on the results of that yet. Prior Treatments and Tests Lumbar X-ray: 11/06/20: Moderate multilevel lumbar spondylosis most severe at L4- 5 and L5-S1 with suspected moderate neural foraminal narrowing at L5-S1. Prior Functional Status Baseline Function- ADL's Independent Baseline Function- Mobility Independent Current Functional Impairments (Reported) Functional Limitations- ADL's Pt reports considerable difficulty sleeping, standing for more than 15 minutes Personal Factors Other Personal Factors That May Effect Recent bladder cancer with Therapy/Recovery removal, previously had chemotherapy for bladder cancer PT-OP-C Subjective Start: 11/14/20 11:57 Freq: Status: Active Protocol: Document 12/08/20 14:14 AMB (Rec: 12/08/20 15:37 AMB [id number]) OP-PT Subjective Patient Comments Patient Comments Anish returns to physical therapy stating that his cancer has returned. He states his oncologist says it is in his pelvis and on his sciatic nerve which is causing his pain. They have been changing his meds around, and he is in a high level of pain right now, he is not going to go through chemo again, he is in a clinical trial for immunotherapy. PT-OP-G Mobility & Gait Start: 11/14/20 11:57 Freq: Status: Active Protocol: Document 11/14/20 12:45 AMB (Rec: 11/15/20 10:53 AMB [email or web address]) OP Gait Assessment Comments Gait Comments Antalgic gait- decreased weightbearing through the right PT-OP-J Posture/Palpation/Skin Start: 11/14/20 11:57 Freq: Status: Active Protocol: Document 11/14/20 12:45 AMB (Rec: 11/15/20 10:53 AMB [email or web address]) Palpation Assessment Location Two Palpation Location R thigh Palpation Findings Tenderness Palpation Details Pt with significant tenderness and pain throughout R anterior hip, not as much through adductors, more iliopsoas. Scar beneath umbilicus and laproscopic at abdomen, denies pain with palpation at scar sites. One Palpation Location lumbar spine Palpation Details pt denies pain with PAs, stiffness especially at L5S1 PT-OP-K Range of Motion Start: 11/14/20 11:57 Freq: Status: Active Protocol: Document 11/14/20 12:45 AMB (Rec: 11/15/20 10:53 AMB [email or web address]) Lumbar Spine Range of Motion Lumbar Spine Active Degrees Testing Position Standing Flexion 50 Extension 10 Lateral Flexion Left 15 Lateral Flexion Right 20 Comments pain with extension, flexion feels better Hip Goniometric Range of Motion Hip Right Passive Comments No pain and full ROM with hip er/ir, hip extension mildly limited by pain PT-OP-M Strength Start: 11/14/20 11:57 Freq: Status: Active Protocol: Document 11/14/20 12:45 AMB (Rec: 11/15/20 10:53 AMB [email or web address]) Hip Strength Hip Manual Muscle Testing Right Flexion (L2) 2+ Poor+ Abduction 3- Fair- Adduction 3- Fair- Left Flexion (L2) 4+ Good+ Abduction 4+ Good+ Adduction 4+ Good+ Knee Strength Knee Manual Muscle Testing Right Flexion (S2) 5 Normal Extension (L3) 5 Normal Left Flexion (S2) 5 Normal Extension (L3) 5 Normal Ankle/Foot Strength Ankle and Foot Manual Muscle Testing Right Dorsiflexion (L4) 5 Normal Left Dorsiflexion (L4) 5 Normal Toe Strength Toe Manual Muscle Testing Right Great Toe Extension 4 Good Left Great Toe Flexion 5 Normal PT-OP-Q Treatments Start: 11/14/20 11:57 Freq: Status: Active Protocol: Document 12/08/20 14:14 AMB (Rec: 12/08/20 15:37 AMB [id number]) Therapeutic Exercises Supine Exercises 3 Supine Exercise Name supine hip abd/add Comments unable 2 Supine Exercise Name long axis hip rotation/ lower trunk rotation Comments decreased pain 1 Supine Exercise Name hamstring, adductor, hip flexor stretches, piriformis stretche Reps/Minutes 10 min Comments increased pain Manual Therapy Treatment Soft Tissue Mobilization 1 Body Location R adductors, hamstring/ piriformis Mobilization Type Manual Lymphatic Drainage, Strumming,Sustained Pressure Intensity/Depth Moderate Body Position Sidelying PT-OP-T Assessment and Plan Start: 11/14/20 11:57 Freq: Status: Active Protocol: Document 12/08/20 14:14 AMB (Rec: 12/08/20 15:37 AMB [id number]) Physical Therapy Assessment Assessment Summary Assessment Discussed pt's pain with him, reports 9-10/10 pain. Slightly improved with manual therapy, but pt is thinking he would rather not continue with therapy at this time considering it would mostly by sx management rather than fixing the problem. So ok with being d/nikolas at this time. Did not meet goals due to cancer returning. Physical Therapy Plan Discharge Physical Therapy Discharge Reasons Change in Medical Status
== END 2020-12-12 08:56 ==
LOC: PHYS 14:15
PROVIDERS: PCP Registered Nurse; Referring Provider Registered Nurse; Visit Provider Registered Nurse
DX: M54.5 Low back pain (principal); S76.211A Strain of adductor muscle, fascia and tendon of right thigh, initial encounter
CPT/HCPCS: 97110; 97140; 97162

== ENCOUNTER 2020-12-11 10:09 | Emergency (ER) | payer OTHER, MEDICAID, SELFPAY ==
[2020-12-11 10:15] VITALS: BP 107/70; PULSE 102; RESP 15; TEMP 36.7; O2SAT 100; BMI 25.8
--- NOTE | 2020-12-11 10:21 | DI.US.S_ITS ---
PROCEDURE: US PERIPH VENOUS LOW EXTREM RT INDICATIONS: PAIN, EDEMA TECHNIQUE: Real-time imaging, as well as color and pulse Doppler interrogation, were performed of the lower extremity deep veins from the inguinal ligament to the popliteal fossa. COMPARISON: None. FINDINGS: Echogenic fully occlusive intraluminal thrombus within the common femoral vein, the deep femoral vein, and the superficial femoral vein as well as the popliteal vein. IMPRESSION: Acute deep venous thrombosis, fully occlusive, within the right femoral and popliteal veins. Dictated by: Adriel Cohn M.D. on 12/11/2020 at 11:10 Approved by: Adriel Cohn M.D. on 12/11/2020 at 11:12
--- NOTE | 2020-12-11 11:07 | ED_ITS ---
HPI - Extremity Problem General Chief complaint: Extremity Problem,Nontraumatic Stated complaint: swelling/pain of right leg x1 day Time Seen by Provider: 12/11/20 11:03 Source: patient Mode of arrival: Wheelchair Limitations: no limitations History of Present Illness HPI Narrative: 55-year-old gentleman with a history of bladder cancer followed at [facility] presents with swelling in the right and leg that started last p.m.. Increasingly sore. No known trauma. No chest pain, dyspnea, orthopnea or palpitations. He denies fevers cough for chills. No vomiting no diarrhea. He notes that his cystostomy site is functioning appropriately. Related Data Previous Rx's Medication Instructions Recorded clotrimazole 10 mg MM 5XD #100 tab 06/11/20 acetaminophen 300 mg-codeine 30 mg 1 tab PO Q6H PRN #21 tab 11/17/20 tablet apixaban See Rx Instructions .ROUTE 12/11/20 .COMPLEX #74 ea Allergies Allergy/AdvReac Type Severity Reaction Status Date / Time No Known Drug Allergies Allergy Verified 12/11/20 10:15 Review of Systems Review of Systems Narrative: Remainder of review of systems including constitutional, ENT, cardiovascular, respiratory, GI, , musculoskeletal, skin, neurologic and psychiatric systems reviewed and are unremarkable except as noted in HPI. Patient History Medical History Bladder cancer (~2019) Surgical History Anesthesia Bladder cancer (~2019) History of open heart surgery (~1970) Family History Father Alzheimer's disease Mother Stroke Social History Smoking Status: Former smoker Smoking Status: Former smoker alcohol intake frequency: holidays/special occasions only Substance Use Type: marijuana Exam Narrative Exam Narrative: General: Healthy appearing, in no acute distress. Able to give a complete and coherent history. Well-nourished well-developed HEENT: Moist mucous membranes, normal sclera with reactive pupils, Respiratory: Lungs are clear to auscultation, no wheezing no rales no rhonchi. Full and symmetrical air movement Cardiac: Regular rate and rhythm no murmurs no bruits Abdomen: Soft, nontender, good bowel tones, no flank pain Skin: Warm and dry, no rashes Neurologic: Grossly neurologically intact with no obvious asymmetries or abnormalities Extremities: No trauma, well perfused. Right leg is significantly more swollen than the left. No redness to suggest infection and no abscess sites. Psych: Cooperative, appropriate insight and affect Initial Vital Signs Initial Vital Signs: Vital Signs Temperature 98.0 F 12/11/20 10:15 Pulse Rate 102 H 12/11/20 10:15 Respiratory Rate 15 12/11/20 10:15 Blood Pressure 107/70 12/11/20 10:15 Pulse Oximetry 100 12/11/20 10:15 Course Orders Ordered: ED Orders 12/11/20 10:21 periph venous low extrem rt Stat 12/11/20 11:37 COVID19 - ADMIT ([employer] swab/PCR) Stat Complete Blood Count AUTO DIFF Stat Comprehensive Metabolic Panel Stat 12/11/20 12:18 CT angio chest PE protocol Stat Discontinued Medications Oxycodone/Acetaminophen (Oxycodone/Acetaminophen 5/325 Tablet) 2 tab PO NOW ONE Stop: 12/11/20 14:07 Vital Signs Vital signs: Vital Signs - 8 hr 12/11/20 10:15 12/11/20 11:57 12/11/20 14:06 Temperature 98.0 F Pulse Rate 102 H 82 91 H Respiratory Rate 15 14 Blood Pressure 107/70 125/70 Pulse Oximetry 100 99 100 MDM - Extremity (Nontraumatic) Lab Data Result diagrams: 12/11/20 11:37 12/11/20 11:37 Labs: Lab Results 12/11/20 12/11/20 12/11/20 Range/Units 11:37 11:37 11:37 WBC 16.2 H (4.5-11.0) X10^3/uL RBC 2.91 L (4.5-5.9) X10^6/uL Hgb 7.9 L (13.5-17.5) g/dL Hct 24.1 L (41-53) % MCV 82.9 (80-100) fL MCH 27.0 (26-34) PG MCHC 32.6 (30-36) % RDW 16.7 H (11.6-14.8) % Plt Count 549 H (150-400) X10^3/uL Neut % (Auto) 77.3 H (50-75) % Lymph % (Auto) 11.5 L (25-40) % Laurel % (Auto) 8.3 (3-14) % Eos % (Auto) 2.7 (2-4) % Baso % (Auto) 0.2 (0-2) % Neut # (Auto) 48383 H (4671-9583) /uL Lymph # (Auto) 1900 (4938-8321) /uL Laurel # (Auto) 1300 H (0-900) /uL Eos # (Auto) 400 (0-450) /uL Baso # (Auto) 0 (0-100) /uL Sodium 134 L (137-145) mmol/L Potassium 4.1 (3.4-5.1) mmol/L Chloride 99 (98-107) mmol/L Carbon Dioxide 26 (22-32) mmol/L BUN 35 H (9-20) mg/dL Creatinine 1.30 H (0.66-1.25) mg/dL Estimated GFR 57.1 L (>60) mL/min BUN/Creatinine Ratio 26.9 H (6-22) Glucose 120 H (70-100) mg/dL Calcium 11.0 H (8.4-10.2) mg/dL Total Bilirubin 0.4 (0.2-1.3) mg/dL AST 23 (17-59) IU/L ALT 22 (<50) IU/L Alkaline Phosphatase 113 (38-126) U/L Total Protein 7.6 (6.3-8.2) g/dL Albumin 3.6 (3.5-5.0) g/dL Globulin 4.0 (1.7-4.1) g/dL Albumin/Globulin Ratio 0.9 L (1.0-2.8) SARS-CoV-2 (PCR) Negative (Negative) Imaging Data CT scan - chest: Radiologist's Impression: FINDINGS: Image quality: Excellent. Pulmonary arteries: Pulmonary arteries are normal in size, and demonstrate no intraluminal filling defects to suggest central pulmonary embolism. Lungs and pleura: Lungs are clear. No pleural effusions or pneumothorax. Central and peripheral airways are patent. Mediastinum: Heart size is normal, without pericardial effusion. No mediastinal or hilar adenopathy. Thoracic aorta is normal in caliber and enhancement. Esophagus is normal in caliber, without hiatal hernia. Bones and chest wall: No suspicious bony lesions. Ribs and thoracic spine appear intact throughout. Thyroid gland appears normal where well seen. No axillary or supraclavicular adenopathy. Port-A-Cath extends in normal position from left- sided approach, Abdomen: Visualized upper abdominal solid organs appear normal in the early arterial phase of enhancement. IMPRESSION: No sign of pulmonary embolus or metastatic disease. Port-A-Cath tip in normal position within the atrial caval junction. Dictated by: Anish Gomes M.D. on 12/11/2020 at 12:54 Approved by: Anish Gomes M.D. on 12/11/2020 at 12:56 US - DVT: Radiologist's Impression: FINDINGS: Echogenic fully occlusive intraluminal thrombus within the common femoral vein, the deep femoral vein, and the superficial femoral vein as well as the popliteal vein. IMPRESSION: Acute deep venous thrombosis, fully occlusive, within the right femoral and popliteal veins. Dictated by: Adriel Cohn M.D. on 12/11/2020 at 11:10 MDM Narrative Medical decision making narrative: 55-year-old gentleman with history of bladder cancer with a proximal DVT and no evidence of expansion or pulmonary embolism. He other than some swelling in the right leg he is asymptomatic. Will start him on apixaban and have confirmed with pharmacy that it is covered and he can pick it up today. Dosing blister pack is started. He is having increased pain in that leg. He currently is on 15 mg of OxyContin twice a day and 5 mg of oxycodone 3 times a day as needed. Will allow him to increase the oxycodone to 10 mg up to 3 times a day. He has an appointment with his cancer doctor tomorrow who is his primary pain prescriber and will review this with him. Questions were answered. Clearly reviewed signs and symptoms of pulmonary embolism on reasons to return to the emergency department. He is safe for discharge Discharge Plan Departure Patient Disposition: Home Clinical Impression: Deep vein thrombosis (DVT) of proximal lower extremity Qualifiers: Chronicity: acute Laterality: right Qualified Code(s): I82.4Y1 - Acute embolism and thrombosis of unspecified deep veins of right proximal lower extremity Instructions: DI for Deep Vein Thrombosis, DI for Pulmonary Embolism Activity Restrictions/Additional Instructions: You do have a blood clot all the way up to your thigh however it does not extend past that and you do not have any blood clot in your lungs. You may find you need to use more of your short-acting oxycodone. You can use 2 at a time if needed. Please discuss this with your oncology doctor with your visit tomorrow, you will need refills. 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
[2020-12-11 11:53] LABS: Add Manual Diff / Slide Review NO; Basophils Absolute Auto 0 /uL (0-100); Basophils Percent Auto 0.2 % (0-2); Eosinophils Absolute Auto 400 /uL (0-450); Eosinophils Percent Auto 2.7 % (2-4); Hematocrit 24.1 % (41-53); Hemoglobin 7.9 g/dL (13.5-17.5); Lymphocytes Absolute Auto 1900 /uL (1100-4500); Lymphocytes Percent Auto 11.5 % (25-40); Mean Corpuscular HGB Conc 32.6 % (30-36); Mean Corpuscular Volume 82.9 fL (80-100); Monocytes Absolute Auto 1300 /uL (0-900); Monocytes Percent Auto 8.3 % (3-14); Neutrophils Absolute Auto 12500 /uL (1500-7000); Neutrophils Percent Auto 77.3 % (50-75); Platelet Count 549 X10^3/uL (150-400); Red Blood Cell Count 2.91 X10^6/uL (4.5-5.9); Red Cell Distribution Width 16.7 % (11.6-14.8); White Blood Cell Count 16.2 X10^3/uL (4.5-11.0)
[2020-12-11 11:57] VITALS: PULSE 82; RESP 14; O2SAT 99
[2020-12-11 12:05] LABS: Alanine Aminotransferase 22 IU/L (<50); Albumin 3.6 g/dL (3.5-5.0); Albumin Globulin Ratio 0.9 (1.0-2.8); Alkaline Phosphatase 113 U/L (38-126); Aspartate Aminotransferase 23 IU/L (17-59); BUN Creatinine Ratio 26.9 (6-22); Bilirubin Total 0.4 mg/dL (0.2-1.3); Blood Urea Nitrogen 35 mg/dL (9-20); Carbon Dioxide 26 mmol/L (22-32); Chloride 99 mmol/L (98-107); Estimated Glomerular Filt Rate 57.1 mL/min (>60); Glucose 120 mg/dL (70-100); HEMOLYSIS < 15 (0-50); Potassium 4.1 mmol/L (3.4-5.1); Sodium 134 mmol/L (137-145); Total Protein 7.6 g/dL (6.3-8.2)
--- NOTE | 2020-12-11 12:18 | DI.CT.S_ITS ---
PROCEDURE: CT ANGIO CHEST PE PROTOCOL INDICATIONS: large LE DVT, bladder cancer history TECHNIQUE: After the administration of intravenous contrast, 2 mm thick sections acquired from the pulmonary apices to the posterior costophrenic angles. 3-dimensional maximum intensity projection (MIP) coronal and sagittal reformats were then acquired through the thorax. For radiation dose reduction, the following was used: automated exposure control, adjustment of mA and/or kV according to patient size. COMPARISON: [facility], CT, CT KUB, 04/09/2020, 12:28. FINDINGS: Image quality: Excellent. Pulmonary arteries: Pulmonary arteries are normal in size, and demonstrate no intraluminal filling defects to suggest central pulmonary embolism. Lungs and pleura: Lungs are clear. No pleural effusions or pneumothorax. Central and peripheral airways are patent. Mediastinum: Heart size is normal, without pericardial effusion. No mediastinal or hilar adenopathy. Thoracic aorta is normal in caliber and enhancement. Esophagus is normal in caliber, without hiatal hernia. Bones and chest wall: No suspicious bony lesions. Ribs and thoracic spine appear intact throughout. Thyroid gland appears normal where well seen. No axillary or supraclavicular adenopathy. Port-A-Cath extends in normal position from left-sided approach, Abdomen: Visualized upper abdominal solid organs appear normal in the early arterial phase of enhancement. IMPRESSION: No sign of pulmonary embolus or metastatic disease. Port-A-Cath tip in normal position within the atrial caval junction. Dictated by: Anish Gomes M.D. on 12/11/2020 at 12:54 Approved by: Anish Gomes M.D. on 12/11/2020 at 12:56
[2020-12-11 12:45] LABS: COVID19 - ADMIT (NP swab/PCR) Negative (Negative)
[2020-12-11 14:06] VITALS: BP 125/70; PULSE 91; O2SAT 100
[2020-12-11] MEDS: OXYCODONE/ACETAMINOPHEN 5/325 TABLET 2 TAB PO (14:14)
[2020-12-11 14:44] VITALS: BP 113/70; PULSE 90; RESP 12; O2SAT 100
== END 2020-12-11 14:46 | disposition home or self-care (01) ==
PROVIDERS: Emergency Provider Emergency Medicine; PCP Registered Nurse
DX: I82.411 Acute embolism and thrombosis of right femoral vein (principal); I82.431 Acute embolism and thrombosis of right popliteal vein; Z85.51 Personal history of malignant neoplasm of bladder; Z20.822 Contact with and (suspected) exposure to COVID-19
CPT/HCPCS: 36415; 71275; 80053; 85025; 87635; 93971; 99284; Q9967

== ENCOUNTER → 2020-12-22 14:59 | Outpatient (CLI) | payer OTHER, MEDICAID, SELFPAY ==
[2020-12-22 15:49] LABS: Add Manual Diff / Slide Review NO; Basophils Absolute Auto 200 /uL (0-100); Basophils Percent Auto 0.5 % (0-2); Eosinophils Absolute Auto 700 /uL (0-450); Eosinophils Percent Auto 2.2 % (2-4); Lymphocytes Absolute Auto 1500 /uL (1100-4500); Lymphocytes Percent Auto 4.9 % (25-40); Mean Corpuscular HGB Conc 31.7 % (30-36); Mean Corpuscular Hemoglobin 26.5 PG (26-34); Mean Corpuscular Volume 83.6 fL (80-100); Monocytes Absolute Auto 1300 /uL (0-900); Monocytes Percent Auto 4.3 % (3-14); Neutrophils Absolute Auto 26900 /uL (1500-7000); Neutrophils Percent Auto 88.1 % (50-75); Platelet Count 879 X10^3/uL (150-400); Red Blood Cell Count 2.63 X10^6/uL (4.5-5.9); Red Cell Distribution Width 17.9 % (11.6-14.8)
[2020-12-22 16:04] LABS: Alanine Aminotransferase 16 IU/L (<50); Albumin 3.2 g/dL (3.5-5.0); Albumin Globulin Ratio 0.9 (1.0-2.8); Alkaline Phosphatase 134 U/L (38-126); Aspartate Aminotransferase 17 IU/L (17-59); BUN Creatinine Ratio 31.6 (6-22); Bilirubin Total 0.5 mg/dL (0.2-1.3); Blood Urea Nitrogen 43 mg/dL (9-20); Carbon Dioxide 23 mmol/L (22-32); Chloride 94 mmol/L (98-107); Estimated Glomerular Filt Rate 54.2 mL/min (>60); Globulin 3.6 g/dL (1.7-4.1); Glucose 125 mg/dL (70-100); HEMOLYSIS < 15 (0-50); Potassium 4.7 mmol/L (3.4-5.1); Sodium 128 mmol/L (137-145); Total Protein 6.8 g/dL (6.3-8.2)
[2020-12-22 16:13] LABS: White Blood Cell Count 30.5 X10^3/uL (4.5-11.0)
[2020-12-22 16:46] LABS: Hypochromasia 1+; Platelet Estimate Increased on smear; Polychromasia 2+
== END ==
PROVIDERS: PCP Registered Nurse; Referring Provider Nurse Practitioner Family; Visit Provider Nurse Practitioner Family
DX: E83.52 Hypercalcemia (principal); D69.6 Thrombocytopenia, unspecified; D72.829 Elevated white blood cell count, unspecified
CPT/HCPCS: 36415; 80053; 85025

== ENCOUNTER 2020-12-22 16:42 | Inpatient (IN) | payer OTHER, MEDICAID, SELFPAY ==
[2020-12-22] VITALS (19 sets, daily range): BP systolic 90–114; BP diastolic 52–64; PULSE 78–96; RESP 11–22; TEMP 36.6–37.1; O2SAT 92–99; BMI 24.8
--- NOTE | 2020-12-22 17:32 | ED.RECABL ---
HPI - Recheck/Abnormal Lab/Rx General Chief Complaint: Recheck/Abnormal Lab/Rx Stated Complaint: ABNORMAL LABS Time Seen by Provider: 12/22/20 17:14 Source: patient Mode of arrival: Wheelchair Related Data Previous Rx's Medication Instructions Recorded clotrimazole 10 mg MM 5XD #100 tab 06/11/20 acetaminophen 300 mg-codeine 30 mg 1 tab PO Q6H PRN #21 tab 11/17/20 tablet apixaban See Rx Instructions .ROUTE 12/11/20 .COMPLEX #74 ea Allergies Allergy/AdvReac Type Severity Reaction Status Date / Time No Known Drug Allergies Allergy Verified 12/11/20 10:15 Patient History Medical History Bladder cancer (~2019) Surgical History Anesthesia Bladder cancer (~2019) History of open heart surgery (~1969) Family History Father Alzheimer's disease Mother Stroke Social History Smoking Status: Former smoker Smoking Status: Former smoker alcohol intake frequency: holidays/special occasions only Substance Use Type: marijuana Exam Initial Vital Signs Initial Vital Signs: Vital Signs Temperature 98.8 F 12/22/20 16:48 Pulse Rate 96 H 12/22/20 16:48 Respiratory Rate 22 12/22/20 16:48 Blood Pressure 90/52 L 12/22/20 16:48 Pulse Oximetry 96 12/22/20 16:48 Course Vital Signs Vital signs: Vital Signs - 8 hr 12/22/20 16:48 12/22/20 16:52 Temperature 98.8 F Pulse Rate 96 H 95 H Respiratory Rate 22 19 Blood Pressure 90/52 L Pulse Oximetry 96 Discharge Plan Departure Prescriptions: No Action acetaminophen-codeine 300-30 mg tablet 1 tab PO Q6H PRN (Reason: pain) Qty: 21 RF: 0 clotrimazole 10 mg yumiko 10 mg MM 5XD Qty: 100 RF: 0 apixaban 5 mg (74 tabs) tablets,dose pack See Rx Instructions .ROUTE .COMPLEX Qty: 74 RF: 0
--- NOTE | 2020-12-22 17:43 | DI.RAD.S_ITS ---
PROCEDURE: XR CHEST 1V INDICATIONS: suspected sepsis TECHNIQUE: One view of the chest was acquired. COMPARISON: None. FINDINGS: Surgical changes and devices: Left chest wall Port-A-Cath tip is in SVC.. Lungs and pleura: Lungs are clear. No pleural effusions or pneumothorax. Mediastinum: Mediastinal contours appear normal. Heart size is normal. Bones and chest wall: No suspicious bony lesions. Overlying soft tissues appear unremarkable. IMPRESSION: No acute cardiopulmonary pathology. Dictated by: Ken Santizo M.D. on 12/22/2020 at 18:48 Approved by: Ken Santizo M.D. on 12/22/2020 at 18:48
[2020-12-22 17:56] LABS: Lactate (Lactic Acid) 2.8 mmol/L (0.7-2.1)
[2020-12-22] MEDS: SODIUM CHLORIDE 0.9% 2,160 ML 720 ML IV (18:00)
[2020-12-22] MEDS: LIDOCAINE 1% (PF) 2 ML (18:11)
[2020-12-22 18:13] LABS: Procalcitonin 3.48 ng/mL (<0.5)
[2020-12-22 18:25] LABS: INR 2.3 (0.9-1.3); Prothrombin Time 25.8 SECONDS (10.1-12.7)
[2020-12-22 18:28] LABS: PTT Partial Thromboplastin Tim 29 SECONDS (26.4-36.2)
--- NOTE | 2020-12-22 18:39 | ED_ITS ---
HPI - Recheck/Abnormal Lab/Rx General Chief Complaint: Recheck/Abnormal Lab/Rx Stated Complaint: ABNORMAL LABS Time Seen by Provider: 12/22/20 17:14 Source: patient Mode of arrival: Wheelchair History of Present Illness HPI narrative: 55-year-old male former smoker with history of bladder cancer presents at the request of his oncology team for the evaluation of abnormal outpatient labs. He was initially diagnosed late last year in completed chemotherapy with subsequent surgery in June. He has continued to be under the care of the [facility] and has just completed his 3rd administration of [place] 7. He is largely felt at his or near his baseline as of late, perhaps a bit fatigued but denies fever, vomiting or diarrhea. He has had some chills and nausea which is not atypical for him. He denies any headache, blurred vision or confusion. He denies any focal neurologic findings such as numbness, tingling or weakness. He denies any chest pain or shortness of breath. He denies abdominal pain or diarrhea. He was called and encouraged to present due to a critically elevated calcium. MD complaint: abnormal lab Symptoms since prior visit: no new symptoms Context: called for abnormal lab result Related Data Home Medications Medication Instructions Recorded Confirmed acetaminophen [Tylenol Extra 1,000 mg PO Q6H PRN 12/22/20 12/22/20 Strength] docusate sodium [Colace] 100 mg PO BID 12/22/20 12/22/20 gabapentin 100 - 300 mg PO TID 12/22/20 12/22/20 morphine 15 mg PO TID 12/22/20 12/22/20 oxycodone 5 - 10 mg PO TID PRN 12/22/20 12/22/20 Previous Rx's Medication Instructions Recorded apixaban See Rx Instructions .ROUTE 12/11/20 .COMPLEX #[id number] ea Allergies Allergy/AdvReac Type Severity Reaction Status Date / Time No Known Drug Allergies Allergy Verified 12/22/20 19:38 Review of Systems Constitutional Constitutional: Reports chills, Denies fatigue, Denies fever(s), Denies frequent falls, Denies lethargy and Denies weakness Eyes Eyes: Denies change in vision, Denies eye discharge, Denies irritation and Denies loss of vision ENT Ears, Nose, Mouth, and Throat: Denies change in voice, Denies dizziness, Denies neck pain, Denies sore throat and Denies throat swelling Cardiovascular Cardiovascular: Denies chest pain, Denies irregular heart rhythm, Denies lightheadedness, Denies palpitations, Denies dyspnea, Denies dyspnea on exertion and Denies orthopnea Respiratory Respiratory: Denies cough, Denies dyspnea, Denies dyspnea on exertion and Denies wheezing Gastrointestinal Gastrointestinal: Denies abdominal pain, Denies change in bowel habits, Denies diarrhea, Denies nausea and Denies vomiting Musculoskeletal Musculoskeletal: Denies neck pain and Denies numbness Integumentary/Breasts Skin/Breast: Denies pruritus, Denies erythema, Denies rash and Denies wounds Neurologic Neurologic: Denies behavioral changes, Denies confusion, Denies dizziness, Denies frequent falls, Denies loss of vision, Denies numbness and Denies weakness Psychiatric Psychiatric: Denies anxiety, Denies behavioral changes, Denies confusion, Denies depression, Denies homicidal ideation and Denies suicidal ideation Endocrine Endocrine: Denies fatigue, Denies flushing and Denies palpitations Hematologic/Lymphatic Hematologic/Lymphatic: Denies easy bruising Allergic/Immunologic Allergic/Immunologic: Denies urticaria, Denies throat swelling and Denies wheezing Patient History Medical History Bladder cancer (~2019) Surgical History Anesthesia Bladder cancer (~2019) History of open heart surgery (~1969) Family History Father Alzheimer's disease Mother Stroke Social History Smoking Status: Former smoker Smoking Status: Former smoker alcohol intake frequency: holidays/special occasions only Substance Use Type: marijuana Exam Narrative Exam Narrative: GENERAL: [55] year old patient appears stated age. Thin, in mild distress. HEAD: Atraumatic. Normocephalic. EYES: Pupils equal round and reactive. Extraocular motions intact. No scleral icterus. No injection or drainage. ENT: Nose without bleeding, purulent drainage. Throat without erythema, tonsillar hypertrophy or exudate. Airway patent. NECK: Trachea midline. Non tender CARDIOVASCULAR: Regular rate and rhythm without murmurs, gallops, or rubs. RESPIRATORY: Clear to auscultation. Breath sounds equal bilaterally. No wheezes, rales, or rhonchi. GASTROINTESTINAL: Abdomen soft, non-tender, nondistended. EXTREMITIES: No edema or joint tenderness. BACK: Nontender without deformity or crepitance. No flank tenderness. NEURO: AOx3. SKIN: No rash or erythema of visible areas Initial Vital Signs Initial Vital Signs: Vital Signs Temperature 98.8 F 12/22/20 16:48 Pulse Rate 96 H 12/22/20 16:48 Respiratory Rate 22 12/22/20 16:48 Blood Pressure 90/52 L 12/22/20 16:48 Pulse Oximetry 96 12/22/20 16:48 Course Orders Ordered: ED Orders 12/22/20 17:25 Lactate (Lactic Acid) Stat Partial Thromboplastin Time Stat Procalcitonin Stat Prothrombin Time INR Stat Type and Screen Stat 12/22/20 17:43 XR chest 1V Stat Blood Culture Stat EKG-12 Lead Stat 12/22/20 18:15 Urinalysis and Microscopic Stat Urine Culture Stat 12/22/20 19:05 COVID19 - ADMIT (RADIO DISC JOCKEY swab/PCR) Stat Acetaminophen (Acetaminophen 325 Mg Tablet) 1,000 mg PO Q8H PRN PRN Reason: Fever/Mild Pain (1-3) Last Admin: 12/22/20 22:05 Dose: 975 mg Documented by: DELISA Apixaban (Apixaban 5 Mg Tablet) 5 mg PO BID [facility] Last Admin: 12/22/20 22:04 Dose: 5 mg Documented by: DELISA Bisacodyl (Bisacodyl 10 Mg Supp) 10 mg MT DAILY PRN PRN Reason: Constipation Docusate Sodium (Docusate 100 Mg Capsule) 100 mg PO BID [facility] Last Admin: 12/22/20 22:04 Dose: 100 mg Documented by: DELISA Heparin Sodium (Porcine) (Heparin 500 Unit/5 Ml Port Flush) 500 unit IV BID [facility] Last Admin: 12/22/20 23:55 Dose: Not Given Documented by: JACKSON Heparin Sodium (Porcine) (Heparin 500 Unit/5 Ml Port Flush) 500 unit IV PRN PRN PRN Reason: Flush Sodium Chloride (Normal Saline 0.9%) 1,000 mls @ 150 mls/hr IV CONT [facility] Last Infusion: 12/22/20 23:59 Dose: 50 mls/hr Documented by: Admin: 12/22/20 20:45 Dose: 150 mls/hr Documented by: DELISA Piperacillin/Tazobactam/Dextrose (Zosyn) 3.375 gm in 50 mls @ 100 mls/hr IV Q6H [facility] Morphine Sulfate (Morphine Er 15 Mg Tablet) 15 mg PO Q8HR [facility] Last Admin: 12/22/20 22:03 Dose: 15 mg Documented by: DELISA Naloxone HCl (Naloxone 0.4 Mg/Ml Vial) 0.2 mg IV Q2MIN PRN PRN Reason: Opiate Reversal Ondansetron HCl (Ondansetron 4 Mg/2 Ml Inj) 4 mg IV Q8HR PRN PRN Reason: Nausea And Vomiting Oxycodone HCl (Oxycodone Ir 5 Mg Tablet) 5 mg PO Q6HR PRN PRN Reason: Pain, Moderate (4-6) Oxycodone HCl (Oxycodone Ir 10 Mg Tablet) 10 mg PO Q6HR PRN PRN Reason: Pain, Severe (7-10) Last Admin: 12/22/20 22:04 Dose: 10 mg Documented by: DELISA Discontinued Medications Sodium Chloride (Normal Saline 0.9%) 2,160 mls @ 720 mls/hr 30 ml/kg infuse over 3 hr (2160 ml) IV NOW ONE Stop: 12/22/20 20:44 Last Infusion: 12/22/20 23:21 Dose: 0 mls/hr Documented by: Infusion: 12/22/20 20:36 Dose: 720 mls/hr Documented by: Admin: 12/22/20 18:00 Dose: 720 mls/hr Documented by: PATRICIO Piperacillin Sod/Tazobactam (Sod 4.5 gm/ Sodium Chloride) 100 mls @ 200 mls/hr IV NOW ONE Stop: 12/22/20 19:44 Last Infusion: 12/22/20 20:06 Dose: 0 mls/hr Documented by: Admin: 12/22/20 19:30 Dose: 200 mls/hr Documented by: PATRICOI Vital Signs Vital signs: Vital Signs - 8 hr 12/22/20 16:52 12/22/20 17:00 12/22/20 17:30 Pulse Rate 95 H 94 H 94 H Respiratory Rate 19 14 19 Blood Pressure Pulse Oximetry 94 93 12/22/20 17:34 12/22/20 17:45 12/22/20 18:00 Pulse Rate 92 H 88 92 H Respiratory Rate 15 17 17 Blood Pressure 95/53 L Pulse Oximetry 97 92 97 12/22/20 18:15 12/22/20 18:16 12/22/20 18:30 Pulse Rate 87 87 90 Respiratory Rate 14 17 21 Blood Pressure 97/57 L 96/62 Pulse Oximetry 95 97 99 12/22/20 18:45 12/22/20 19:00 12/22/20 19:15 Pulse Rate 83 85 81 Respiratory Rate 16 17 11 L Blood Pressure 100/55 L 104/55 L 107/57 L Pulse Oximetry 98 94 99 12/22/20 19:30 12/22/20 19:45 Pulse Rate 80 80 Respiratory Rate 17 18 Blood Pressure 103/55 L 100/58 L Pulse Oximetry 94 92 MDM - Recheck/Abnormal Lab/Rx Lab Data Result diagrams: 12/22/20 22:00 12/22/20 22:00 Labs: Lab Results 12/22/20 12/22/20 12/22/20 Range/Units 17:25 17:25 17:25 PT 25.8 H (10.1-12.7) SECONDS INR 2.3 H (0.9-1.3) APTT 29 (26.4-36.2) SECONDS Lactate 2.8 H (0.7-2.1) mmol/L Magnesium (1.6-2.3) mg/dL Procalcitonin 3.48 H (<0.5) ng/mL Urine Color Urine Appearance Urine pH (4.5-8.0) Ur Specific [place] (1.000-1.035) Urine Protein (Negative) Urine Glucose (UA) (Negative) g/dL Urine Ketones (NEGATIVE) Urine Occult Blood (Negative) Urine Nitrate (Negative) Urine Bilirubin (NEGATIVE) Urine Urobilinogen (0.2) E.U./dL Ur Leukocyte Esterase (NEGATIVE) Urine RBC (0-5/HPF) Urine WBC (0-5/HPF) Ur Squamous Epith Cells (0-5/HPF) Amorphous Sediment Urine Bacteria (None) Urine Mucus (Negative) Ur Culture Indicated? SARS-CoV-2 (PCR) (Negative) Blood Type Antibody Screen Crossmatch 12/22/20 12/22/20 12/22/20 Range/Units 17:25 17:25 18:15 PT (10.1-12.7) SECONDS INR (0.9-1.3) APTT (26.4-36.2) SECONDS Lactate (0.7-2.1) mmol/L Magnesium 2.2 (1.6-2.3) mg/dL Procalcitonin (<0.5) ng/mL Urine Color Yellow Urine Appearance Slightly cloudy Urine pH 7.0 (4.5-8.0) Ur Specific [place] 1.010 (1.000-1.035) Urine Protein Trace H (Negative) Urine Glucose (UA) Negative (Negative) g/dL Urine Ketones Negative (NEGATIVE) Urine Occult Blood 2+ H (Negative) Urine Nitrate Positive (Negative) Urine Bilirubin Negative (NEGATIVE) Urine Urobilinogen 0.2 (0.2) E.U./dL Ur Leukocyte Esterase 3+ H (NEGATIVE) Urine RBC 5-10/hpf H (0-5/HPF) Urine WBC 10-30/hpf H (0-5/HPF) Ur Squamous Epith Cells 0-1 /hpf (0-5/HPF) Amorphous Sediment 1+ Urine Bacteria Moderate (10-30) H (None) Urine Mucus 1+ H (Negative) Ur Culture Indicated? Specimen cultured SARS-CoV-2 (PCR) (Negative) Blood Type B Positive Antibody Screen Negative Crossmatch See Detail 12/22/20 Range/Units 19:05 PT (10.1-12.7) SECONDS INR (0.9-1.3) APTT (26.4-36.2) SECONDS Lactate (0.7-2.1) mmol/L Magnesium (1.6-2.3) mg/dL Procalcitonin (<0.5) ng/mL Urine Color Urine Appearance Urine pH (4.5-8.0) Ur Specific [place] (1.000-1.035) Urine Protein (Negative) Urine Glucose (UA) (Negative) g/dL Urine Ketones (NEGATIVE) Urine Occult Blood (Negative) Urine Nitrate (Negative) Urine Bilirubin (NEGATIVE) Urine Urobilinogen (0.2) E.U./dL Ur Leukocyte Esterase (NEGATIVE) Urine RBC (0-5/HPF) Urine WBC (0-5/HPF) Ur Squamous Epith Cells (0-5/HPF) Amorphous Sediment Urine Bacteria (None) Urine Mucus (Negative) Ur Culture Indicated? SARS-CoV-2 (PCR) Negative (Negative) Blood Type Antibody Screen Crossmatch Imaging Data Chest x-ray: Radiologist's Impression: Anish Schultz 55 M [address] [id number] ReportSigned Patient: Anish Schultz AMR#: [id number]: 1965Acct:[id number]/Sex: 55 / MDate of Service: 12/22/20Loc: EDAccession Number: [id number] Procedure: XR chest 1V Ordering Provider: Glendy Mike MD PROCEDURE: XR CHEST 1V INDICATIONS: suspected sepsis TECHNIQUE: One view of the chest was acquired. COMPARISON: None. FINDINGS: Surgical changes and devices: Left chest wall Port-A-Cath tip is in SVC.. Lungs and pleura: Lungs are clear. No pleural effusions or pneumothorax. Mediastinum: Mediastinal contours appear normal. Heart size is normal. Bones and chest wall: No suspicious bony lesions. Overlying soft tissues appear unremarkable. IMPRESSION: No acute cardiopulmonary pathology. Dictated by: Ken Santizo M.D. on 12/22/2020 at 18:48 Approved by: Ken Santizo M.D. on 12/22/2020 at 18:48 [facility] Narrative Medical decision making narrative: Patient with known bladder cancer presents with critically elevated calcium in the absence of much in the way of symptoms other than some chills and a bit of fatigue. He does have significant other lab abnormalities such as elevated white blood cell count, lactate and evidence of urine infection. He has been given IV fluids and antibiotics. Discharge Plan Departure Patient Disposition: Admitted As Inpatient Clinical Impression: Acute UTI, Sepsis, Acute hyperkalemia Admit Date/Time: 12/22/20 19:51 Admit Provider: Oliverio Oconnell
--- NOTE | 2020-12-22 18:42 | PC.NURSE ---
pt states he has a dvt in rt leg, rt pedal pulse +.
[2020-12-22 19:09] LABS: Bilirubin Urine UA NEGATIVE (NEGATIVE); Color Urine UA YELLOW; Glucose Urine UA NEGATIVE (Negative); Ketones Urine UA NEGATIVE (NEGATIVE); Leukocyte Esterase Urine UA 3+ (NEGATIVE); Nitrite Urine UA POSITIVE (Negative); Occult Blood Urine UA 2+ (Negative); Protein Urine UA TRACE (Negative); Urobilinogen Urine UA 0.2 E.U./dL (0.2)
[2020-12-22 19:10] LABS: Appearance Urine UA Slightly Cloudy
[2020-12-22 19:15] LABS: Amorphous Sediment Urine 1+; Bacteria Urine Moderate (10-30); Mucus Urine 1+ (Negative); RBC Urine 5-10/HPF (0-5/HPF); Squamous Epithelial Cell Urine 0-1 /HPF (0-5/HPF); WBC Urine 10-30/HPF (0-5/HPF)
[2020-12-22 19:16] LABS: Culture Indicated Urine Specimen Cultured
[2020-12-22] MEDS: PIPERACILLIN/TAZO 4.5 GM in SODIUM CHLORIDE 0.9% 100 ML 200 ML IV (19:30)
[2020-12-22 19:46] LABS: Reflexed Lactate in 2 Hours Y
[2020-12-22 20:11] LABS: COVID19 - ADMIT (NP swab/PCR) Negative (Negative)
[2020-12-22 20:12] LABS: Lactate 2HR (Lactic Acid Rflx) 1.1 mmol/L (0.7-2.1)
[2020-12-22] MEDS: SODIUM CHLORIDE 0.9% 1,000 ML 150 ML IV (20:45)
[2020-12-22 20:55] LABS: Magnesium 2.2 mg/dL (1.6-2.3)
[2020-12-22] MEDS: MORPHINE ER 15 MG TABLET PO (22:03)
[2020-12-22] MEDS: DOCUSATE 100 MG CAPSULE PO (22:04)
[2020-12-22] MEDS: OXYCODONE IR 10 MG TABLET PO (22:04)
[2020-12-22] MEDS: APIXABAN 5 MG TABLET PO (22:04)
[2020-12-22] MEDS: ACETAMINOPHEN 325 MG TABLET 1000 MG PO (22:05)
[2020-12-22 22:16] LABS: Hemoglobin 6.4 g/dL (13.5-17.5)
[2020-12-22 22:17] LABS: Hematocrit 20.3 % (41-53)
[2020-12-22 22:28] LABS: BUN Creatinine Ratio 33.6 (6-22); Blood Urea Nitrogen 43 mg/dL (9-20); Calcium 11.5 mg/dL (8.4-10.2); Carbon Dioxide 26 mmol/L (22-32); Chloride 101 mmol/L (98-107); Estimated Glomerular Filt Rate 58.1 mL/min (>60); Glucose 113 mg/dL (70-100); HEMOLYSIS < 15 (0-50); Potassium 4.1 mmol/L (3.4-5.1); Sodium 131 mmol/L (137-145)
--- NOTE | 2020-12-22 23:13 | PC.NURSE ---
Admit Pt arrived from ER to room 228, able to stand at bedside and transfer. Left portacath accessed in ER. NS infusing. Pt has chronic pain control issues and home meds verified. Recent diagnosis of RLE DVT, started elequis, [facility] Urostomy to RLQ. Skin check completed. Call light in reach, FWW at bedside for assist.
--- NOTE | 2020-12-22 23:30 | P.HP_ITS ---
History of Present Illness History of Present Illness Date Patient Seen: 12/22/20 Time Patient Seen: 21:30 Chief complaint: ABNORMAL LABS Narrative: Mr. Anish Schultz is a 55-year-old male with a past medical history of bladder cancer (June 2020), status post bladder resection and prostatectomy with urostomy, status post chemotherapy under the care of [facility] ([facility]) and chronic back pain who presents to the ER at the request of [facility] following routine labs finding an elevated calcium at 12. He has ongoing right leg pain for which he was seen in the emergency department on 12/11/2020 very presented for right lower extremity pain finding a DVT. Venous ultrasound identified occlusive DVT of the right femoral and popliteal veins. The patient was negative for pulmonary emboli. The patient reports no systemic symptoms other than fatigue. He denies complaints of fevers or chills, no body aches or bone pain. He has had no complaints of mental confusion or dizziness. He denies chest pain or palpitations, shortness of breath cough or wheezing. He denies abdominal pain, no changes in bowel habits. His urostomy dysfunction without complication. The patient has ongoing right leg pain and uses crutches or walker for mobility. Upon arrival to the ER the patient's temperature 98.8?, heart rate of 76 blood pressure of 90/52, respiratory rate of 20 with saturation of 96%. Chest x-ray is unremarkable. Twelve lead EKG finds sinus rhythm at a rate of 94 without ectopy or block and nonspecific ST T-wave changes. On laboratory analysis the patient has white count of 30.5 with neutrophils of 26,900 and monocytes elevate d at 1300, hemoglobin is 7.0, hematocrit of 22 and platelets of 879. And has a PT of 25.8, INR of 2.3, PTT of 29. The patient is hyponatremic with a sodium of 128. His BUN is 43 with a creatinine of 1.36. His calcium is 13.0. His nonfasting glucose is 125. He has lactate of 2.8 S down to 1.1 on recheck. His procalcitonin is elevated at 3.48. Urinalysis positive for trace protein, positive for blood, nitrites, leukocyte esterase, WBCs and bacteria. While in the ER the patient receives a sepsis bolus of 30 mL per kg, Zosyn 4.5 g IV and is typed and screened. The patient is admitted to the hospitalist service for hypercalcemia, urosepsis and anemia. Patient History Medical History (Updated 12/23/20 @ 04:15 by JONATHAN Sanders) Adult general medical exam Bladder cancer (~2019) Deep vein thrombosis (DVT) of proximal lower extremity Elevated fasting glucose Hx of bladder cancer Lower back pain Surgical History (Updated 12/23/20 @ 04:15 by JONATHAN Sanders) Anesthesia Bladder cancer (~2019) History of open heart surgery (~1969) History of prostatectomy History of urostomy Family & Social History Family History (Updated 12/23/20 @ 04:15 by JONATHAN Sanders) Father Alzheimer's disease Mother Stroke Safety & Behavioral: Feels Safe in Current Yes Environment Been Physically Hurt or No Threatened By a Person Suicidal Ideation Description None Suicide Plan Description No Plan Tobacco & Substance use: Smoking Status Former smoker alcohol intake frequency holiday/special occasion Substance Use Type marijuana Meds Home Medications and Allergies Home Medications Medication Instructions Recorded Confirmed Type apixaban See Rx Instructions .ROUTE 12/11/20 12/22/20 Rx .COMPLEX #74 ea acetaminophen [Tylenol Extra 1,000 mg PO Q6H PRN 12/22/20 12/22/20 History Strength] docusate sodium [Colace] 100 mg PO BID 12/22/20 12/22/20 History gabapentin 100 - 300 mg PO TID 12/22/20 12/22/20 History morphine 15 mg PO TID 12/22/20 12/22/20 History oxycodone 5 - 10 mg PO TID PRN 12/22/20 12/22/20 History Allergies Allergy/AdvReac Type Severity Reaction Status Date / Time No Known Drug Allergies Allergy Verified 12/22/20 19:38 Review of Systems Review of Systems ROS: Yes All systems reviewed with the patient and are negative except as otherwise documented Exam Vital Signs (past 8 hours): - 12/22/20 19:30 12/22/20 19:45 12/22/20 20:00 Temperature Pulse Rate 80 80 85 Respiratory Rate 17 18 18 Blood Pressure 103/55 L 100/58 L 104/56 L Pulse Oximetry 94 92 95 12/22/20 20:15 12/22/20 20:30 12/22/20 21:08 Temperature 97.8 F Pulse Rate 79 78 83 Respiratory Rate 17 17 18 Blood Pressure 103/57 L 101/56 L 114/64 Pulse Oximetry 93 98 98 12/23/20 00:21 12/23/20 00:30 Temperature 98.6 F Pulse Rate 114 H Respiratory Rate 16 Blood Pressure 119/61 Pulse Oximetry 94 96 Oxygen Delivery Method Room Air Oxygen Flow Rate 0 Narrative Exam Narrative: GENERAL APPEARANCE: well developed, well nourished, in no acute distress. HEENT: Normocephalic, PERRLA, conjunctiva clear, EOMs intact without nystagmus, mucous membranes are pink and dry NECK/THYROID: neck supple, no JVD, no thyromegaly, trachea midline. LYMPH NODES: no cervical or supraclavicular lymphadenopathy. SKIN: [place], warm and dry. HEART: regular rate and rhythm, S1-S2, no murmur, no rubs or gallops, brisk capillary refill, no edema LUNGS: clear to auscultation bilaterally, no coarseness crackles or wheezing, no cough present CHEST: Symmetrical movement, no accessory muscle use, good tidal volume. ABDOMEN: urostomy right upper/mid abdomen, stoma is red and moist, abdomen is soft, nontender to palpation, no organomegaly, active bowel tones BACK: Right low back pain palpation EXTREMITIES: Right leg pain, trace to 1+ edema, mild calf/popliteal tenderness, distal CMS intact, strength 5/5 and symmetrical, no cyanosis or clubbing. NEUROLOGIC: AAO x4, no focal neurologic deficits, cranial nerves II-XII grossly intact, sensation intact to light touch, hearing grossly normal to speech. PSYCH: Good eye contact, briskly interactive, linear thought process, cooperative, appropriate with stable behavior Objective Labs Result Diagrams: 12/22/20 22:00 12/22/20 22:00 Labs: Laboratory Results - last 24 hr 12/22/20 12/22/20 12/22/20 17:25 17:25 17:25 Hgb Hct PT 25.8 H INR 2.3 H APTT 29 Sodium Potassium Chloride Carbon Dioxide BUN Creatinine Estimated GFR BUN/Creatinine Ratio Glucose Lactate 2.8 H Calcium Magnesium Procalcitonin 3.48 H Urine Color Urine Appearance Urine pH Ur Specific [place] Urine Protein Urine Glucose (UA) Urine Ketones Urine Occult Blood Urine Nitrate Urine Bilirubin Urine Urobilinogen Ur Leukocyte Esterase Urine RBC Urine WBC Ur Squamous Epith Cells Amorphous Sediment Urine Bacteria Urine Mucus Ur Culture Indicated? SARS-CoV-2 (PCR) Blood Type Antibody Screen Crossmatch 12/22/20 12/22/20 12/22/20 17:25 17:25 18:15 Hgb Hct PT INR APTT Sodium Potassium Chloride Carbon Dioxide BUN Creatinine Estimated GFR BUN/Creatinine Ratio Glucose Lactate Calcium Magnesium 2.2 Procalcitonin Urine Color Yellow Urine Appearance Slightly cloudy Urine pH 7.0 Ur Specific [place] 1.010 Urine Protein Trace H Urine Glucose (UA) Negative Urine Ketones Negative Urine Occult Blood 2+ H Urine Nitrate Positive Urine Bilirubin Negative Urine Urobilinogen 0.2 Ur Leukocyte Esterase 3+ H Urine RBC 5-10/hpf H Urine WBC 10-30/hpf H Ur Squamous Epith Cells 0-1 /hpf Amorphous Sediment 1+ Urine Bacteria Moderate (10-30) H Urine Mucus 1+ H Ur Culture Indicated? Specimen cultured SARS-CoV-2 (PCR) Blood Type B Positive Antibody Screen Negative Crossmatch See Detail 12/22/20 12/22/20 12/22/20 19:05 19:56 22:00 Hgb 6.4 L* Hct 20.3 L* PT INR APTT Sodium Potassium Chloride Carbon Dioxide BUN Creatinine Estimated GFR BUN/Creatinine Ratio Glucose Lactate 1.1 Calcium Magnesium Procalcitonin Urine Color Urine Appearance Urine pH Ur Specific [place] Urine Protein Urine Glucose (UA) Urine Ketones Urine Occult Blood Urine Nitrate Urine Bilirubin Urine Urobilinogen Ur Leukocyte Esterase Urine RBC Urine WBC Ur Squamous Epith Cells Amorphous Sediment Urine Bacteria Urine Mucus Ur Culture Indicated? SARS-CoV-2 (PCR) Negative Blood Type Antibody Screen Crossmatch 12/22/20 22:00 Hgb Hct PT INR APTT Sodium 131 L Potassium 4.1 Chloride 101 Carbon Dioxide 26 BUN 43 H Creatinine 1.28 H Estimated GFR 58.1 L BUN/Creatinine Ratio 33.6 H Glucose 113 H Lactate Calcium 11.5 H Magnesium Procalcitonin Urine Color Urine Appearance Urine pH Ur Specific [place] Urine Protein Urine Glucose (UA) Urine Ketones Urine Occult Blood Urine Nitrate Urine Bilirubin Urine Urobilinogen Ur Leukocyte Esterase Urine RBC Urine WBC Ur Squamous Epith Cells Amorphous Sediment Urine Bacteria Urine Mucus Ur Culture Indicated? SARS-CoV-2 (PCR) Blood Type Antibody Screen Crossmatch Assessment & Plan Assessment & Plan narrative: This is a 55-year-old male with a past medical history of bladder cancer (June 2020), status post bladder resection and prostatectomy with urostomy, status post chemotherapy under the care of [facility] ([facility]) and chronic back pain who presents to the ER at the request of [facility] to follow-up on elevated serum calcium and is found to have urosepsis and anemia. 1. Sepsis due to urinary tract infection, acute, present on admission, active -the patient presents with sepsis markers including leukocytosis at 30.5 with neutrophils 26,900, mean arterial pressure of 64, increased creatinine at 1.36, procalcitonin is 3.48 and lactic acid of 2.8. Patient is on apixaban however INR is markedly elevated at 2.3 beyond typical for the medication. Patient is afebrile and his only complaint is fatigue which is nonspecific and likely multifactorial in his case. -the patient has had a bladder resection and prostatectomy with urostomy, urine is positive for trace protein, positive for blood, nitrites, leukocyte esterase, wbc's and bacteria. -patient received sepsis bolus in the ER of 30 mL per kg, will continue saline at 150 cc/hour. -ordered Zosyn 3.375 g IV every 6 hours, patient received 1st dose of Zosyn 4.5 g IV in the emergency department. -will recheck CBC and procalcitonin in the morning. Moderate hypercalcemia, acute, present on admission, active -patient only complains of fatigue but does endorse high urine output from his urostomy. No complaints of headache or thirst, body aches or bone pain, nausea or constipation. -the patient received sepsis bolus, ordered normal saline 150 cc/hour. -will recheck BMP at 10:00 p.m.. Normochromic normocytic anemia, present on admission, active. -patient's occurring undergoing investigational interleukin 7 therapy for his bladder cancer. -his hemoglobin on admission is 7.0 and was 7.9 on 12/11/2020. -the patient is receiving large volume IV fluid treatment of hypercalcemia which will further dropped his hemoglobin. The patient is typed and screened. -ordered H&H at 10:00 p.m. and with morning labs. Bladder cancer, chronic, stable -bladder cancer was diagnosed in June of 2020. He has since undergone bladder resection and prostatectomy with formation of urostomy. -the patient has just recently received his 3rd dose of investigational interleukin 7 therapy. -he is following with [facility] and is sent to the ER following abnormal monitoring labs with hypercalcemia at 12. VTE prophylaxis: Anticoagulated on apixaban IV fluid: Normal saline 150 cc/hour Diet: Regular Code status: Full code, the patient designates his sister Selena to be his surrogate decision maker. The patient is admitted to the hospital due to the severity of his symptoms requiring a complex treatment plan to treat his urosepsis hypercalcemia and anemia prevent complications or adverse events. The patient is admitted as an inpatient with expected length of stay to be greater than 2 midnights COVID-19 COVID-19 status: Negative Result date/Date tested (Pos, Neg/Pending): 12/22/20 Scores GCS [place] coma scale eye opening: Spontaneous [place] coma scale verbal response: Orientated [place] coma scale motor response: Obey commands [place] coma scale total score: 15 SOFA PaO2/FIO2: >=400 mmHg Platelets: >= 150 Bilirubin: < 1.2 mg/dL Hypotension: MAP < 70 mmHg [place] Coma Scale: 15 Renal: Creatinine 1.2-1.9 mg/dL SOFA Score: 2 Quality VTE Deep Vein Thrombosis/Pulmonary Embolism Present on Admission: Yes MIPS - Admit I confirm the patient?s Advance Care Plan is present, Code status is documented, Surrogate decision maker is in patient?s record [If Yes, STOP here]: Yes
--- NOTE | 2020-12-22 23:40 | PC.NURSE ---
Addendum entered by Fransisca Dean R.N. 12/23/20 00:27: 0015- Blood consent signed and on chart. Original Note: 8535- Blood Bank reports that blood will arrive in several hours as it is irradiated. Will transfuse when available.
[2020-12-23] VITALS (60 sets, daily range): BP systolic 84–120; BP diastolic 53–64; PULSE 76–114; RESP 13–63; TEMP 36.6–37.7; O2SAT 75–98
[2020-12-23] MEDS: PIPERACILLIN-TAZO 3.375 GM/50 ML FROZ.PIGGY IV ×4 (02:02→20:47)
[2020-12-23 05:09] LABS: Alanine Aminotransferase 12 IU/L (<50); Albumin 2.6 g/dL (3.5-5.0); Albumin Globulin Ratio 0.7 (1.0-2.8); Alkaline Phosphatase 111 U/L (38-126); Aspartate Aminotransferase 20 IU/L (17-59); BUN Creatinine Ratio 29.7 (6-22); Bilirubin Total 0.3 mg/dL (0.2-1.3); Blood Urea Nitrogen 38 mg/dL (9-20); Calcium 11.3 mg/dL (8.4-10.2); Carbon Dioxide 23 mmol/L (22-32); Chloride 103 mmol/L (98-107); Estimated Glomerular Filt Rate 58.1 mL/min (>60); Globulin 3.5 g/dL (1.7-4.1); Glucose 115 mg/dL (70-100); HEMOLYSIS < 15 (0-50); Potassium 3.9 mmol/L (3.4-5.1); Sodium 130 mmol/L (137-145); Total Protein 6.1 g/dL (6.3-8.2)
[2020-12-23 05:13] LABS: Add Manual Diff / Slide Review NO; Basophils Absolute Auto 100 /uL (0-100); Basophils Percent Auto 0.4 % (0-2); Eosinophils Absolute Auto 900 /uL (0-450); Eosinophils Percent Auto 3.7 % (2-4); Lymphocytes Absolute Auto 1700 /uL (1100-4500); Lymphocytes Percent Auto 7.1 % (25-40); Mean Corpuscular HGB Conc 32.1 % (30-36); Mean Corpuscular Hemoglobin 27.1 PG (26-34); Mean Corpuscular Volume 84.4 fL (80-100); Monocytes Absolute Auto 1200 /uL (0-900); Monocytes Percent Auto 5.1 % (3-14); Neutrophils Absolute Auto 20300 /uL (1500-7000); Neutrophils Percent Auto 83.7 % (50-75); Platelet Count 674 X10^3/uL (150-400); Red Blood Cell Count 2.18 X10^6/uL (4.5-5.9); Red Cell Distribution Width 17.6 % (11.6-14.8); White Blood Cell Count 24.2 X10^3/uL (4.5-11.0)
[2020-12-23 05:16] LABS: Hematocrit 18.4 % (41-53); Hemoglobin 5.9 g/dL (13.5-17.5)
[2020-12-23 05:25] LABS: Procalcitonin 3.35 ng/mL (<0.5)
[2020-12-23] MEDS: MORPHINE ER 15 MG TABLET PO ×3 (05:58→21:04)
[2020-12-23] MEDS: APIXABAN 5 MG TABLET PO ×2 (08:38→20:47)
[2020-12-23] MEDS: DOCUSATE 100 MG CAPSULE PO ×2 (08:38→20:47)
[2020-12-23 13:10] LABS: Hematocrit 22.5 % (41-53); Hemoglobin 7.5 g/dL (13.5-17.5)
--- NOTE | 2020-12-23 15:11 | P.PN_ITS ---
Subjective Subjective Date Patient Seen: 12/23/20 Time Patient Seen: 08:11 Interval history: Currently he has no complaints. The only thing he has felt is fatigue. He denies any pain, bleeding, shortness of breath, changes in urine from ostomy, or changes in skin around port site. Exam Vital Signs (past 8 hours): - 12/23/20 08:00 12/23/20 08:31 12/23/20 08:46 Temperature 98.6 F 98.6 F 99.3 F Pulse Rate 104 H 95 H 103 H Respiratory Rate 15 18 Blood Pressure 102/57 L 102/57 L 93/62 Pulse Oximetry 97 12/23/20 11:51 12/23/20 11:52 Temperature 100 F H Pulse Rate 98 H Respiratory Rate 18 Blood Pressure 99/57 L Pulse Oximetry 93 Oxygen Delivery Method Room Air Oxygen Flow Rate 0 Narrative Exam Narrative: GENERAL APPEARANCE: well developed, well nourished, in no acute distress. HEENT: Normocephalic, PERRLA, conjunctiva clear, EOMs intact without nystagmus, mucous membranes are pink and dry NECK/THYROID: neck supple, no JVD, no thyromegaly, trachea midline. LYMPH NODES: no cervical or supraclavicular lymphadenopathy. SKIN: [place], warm and dry. HEART: regular rate and rhythm, S1-S2, no murmur, no rubs or gallops, brisk capillary refill, no edema LUNGS: clear to auscultation bilaterally, no coarseness crackles or wheezing, no cough present CHEST: Symmetrical movement, no accessory muscle use, good tidal volume. ABDOMEN: urostomy right upper/mid abdomen, stoma is red and moist, abdomen is soft, nontender to palpation, no organomegaly, active bowel tones BACK: Right low back pain palpation EXTREMITIES: Right leg pain, trace to 1+ edema, mild calf/popliteal tenderness, distal CMS intact, strength 5/5 and symmetrical, no cyanosis or clubbing. NEUROLOGIC: AAO x4, no focal neurologic deficits, cranial nerves II-XII grossly intact, sensation intact to light touch, hearing grossly normal to speech. PSYCH: Good eye contact, briskly interactive, linear thought process, cooperative, appropriate with stable behavior Objective Labs Result Diagrams: 12/23/20 12:59 12/23/20 04:28 Labs: Laboratory Results - last 24 hr 12/22/20 12/22/20 12/22/20 17:25 17:25 17:25 WBC RBC Hgb Hct MCV MCH MCHC RDW Plt Count Neut % (Auto) Lymph % (Auto) [place] % (Auto) Eos % (Auto) Baso % (Auto) Neut # (Auto) Lymph # (Auto) [place] # (Auto) Eos # (Auto) Baso # (Auto) PT 25.8 H INR 2.3 H APTT 29 Sodium Potassium Chloride Carbon Dioxide BUN Creatinine Estimated GFR BUN/Creatinine Ratio Glucose Lactate 2.8 H Calcium Magnesium Total Bilirubin AST ALT Alkaline Phosphatase Total Protein Albumin Globulin Albumin/Globulin Ratio Procalcitonin 3.48 H Urine Color Urine Appearance Urine pH Ur Specific [place] Urine Protein Urine Glucose (UA) Urine Ketones Urine Occult Blood Urine Nitrate Urine Bilirubin Urine Urobilinogen Ur Leukocyte Esterase Urine RBC Urine WBC Ur Squamous Epith Cells Amorphous Sediment Urine Bacteria Urine Mucus Ur Culture Indicated? SARS-CoV-2 (PCR) Blood Type Antibody Screen Crossmatch 12/22/20 12/22/20 12/22/20 17:25 17:25 18:15 WBC RBC Hgb Hct MCV MCH MCHC RDW Plt Count Neut % (Auto) Lymph % (Auto) [place] % (Auto) Eos % (Auto) Baso % (Auto) Neut # (Auto) Lymph # (Auto) [place] # (Auto) Eos # (Auto) Baso # (Auto) PT INR APTT Sodium Potassium Chloride Carbon Dioxide BUN Creatinine Estimated GFR BUN/Creatinine Ratio Glucose Lactate Calcium Magnesium 2.2 Total Bilirubin AST ALT Alkaline Phosphatase Total Protein Albumin Globulin Albumin/Globulin Ratio Procalcitonin Urine Color Yellow Urine Appearance Slightly cloudy Urine pH 7.0 Ur Specific [place] 1.010 Urine Protein Trace H Urine Glucose (UA) Negative Urine Ketones Negative Urine Occult Blood 2+ H Urine Nitrate Positive Urine Bilirubin Negative Urine Urobilinogen 0.2 Ur Leukocyte Esterase 3+ H Urine RBC 5-10/hpf H Urine WBC 10-30/hpf H Ur Squamous Epith Cells 0-1 /hpf Amorphous Sediment 1+ Urine Bacteria Moderate (10-30) H Urine Mucus 1+ H Ur Culture Indicated? Specimen cultured SARS-CoV-2 (PCR) Blood Type B Positive Antibody Screen Negative Crossmatch See Detail 12/22/20 12/22/20 12/22/20 19:05 19:56 22:00 WBC RBC Hgb 6.4 L* Hct 20.3 L* MCV MCH MCHC RDW Plt Count Neut % (Auto) Lymph % (Auto) [place] % (Auto) Eos % (Auto) Baso % (Auto) Neut # (Auto) Lymph # (Auto) [place] # (Auto) Eos # (Auto) Baso # (Auto) PT INR APTT Sodium Potassium Chloride Carbon Dioxide BUN Creatinine Estimated GFR BUN/Creatinine Ratio Glucose Lactate 1.1 Calcium Magnesium Total Bilirubin AST ALT Alkaline Phosphatase Total Protein Albumin Globulin Albumin/Globulin Ratio Procalcitonin Urine Color Urine Appearance Urine pH Ur Specific [place] Urine Protein Urine Glucose (UA) Urine Ketones Urine Occult Blood Urine Nitrate Urine Bilirubin Urine Urobilinogen Ur Leukocyte Esterase Urine RBC Urine WBC Ur Squamous Epith Cells Amorphous Sediment Urine Bacteria Urine Mucus Ur Culture Indicated? SARS-CoV-2 (PCR) Negative Blood Type Antibody Screen Crossmatch 12/22/20 12/23/20 12/23/20 22:00 04:28 04:28 WBC 24.2 H RBC 2.18 L Hgb 5.9 L* Hct 18.4 L* MCV 84.4 MCH 27.1 MCHC 32.1 RDW 17.6 H Plt Count 674 H Neut % (Auto) 83.7 H Lymph % (Auto) 7.1 L [place] % (Auto) 5.1 Eos % (Auto) 3.7 Baso % (Auto) 0.4 Neut # (Auto) 41034 H Lymph # (Auto) 1700 [place] # (Auto) 1200 H Eos # (Auto) 900 H Baso # (Auto) 100 PT INR APTT Sodium 131 L 130 L Potassium 4.1 3.9 Chloride 101 103 Carbon Dioxide 26 23 BUN 43 H 38 H Creatinine 1.28 H 1.28 H Estimated GFR 58.1 L 58.1 L BUN/Creatinine Ratio 33.6 H 29.7 H Glucose 113 H 115 H Lactate Calcium 11.5 H 11.3 H Magnesium Total Bilirubin 0.3 AST 20 ALT 12 Alkaline Phosphatase 111 Total Protein 6.1 L Albumin 2.6 L Globulin 3.5 Albumin/Globulin Ratio 0.7 L Procalcitonin Urine Color Urine Appearance Urine pH Ur Specific [place] Urine Protein Urine Glucose (UA) Urine Ketones Urine Occult Blood Urine Nitrate Urine Bilirubin Urine Urobilinogen Ur Leukocyte Esterase Urine RBC Urine WBC Ur Squamous Epith Cells Amorphous Sediment Urine Bacteria Urine Mucus Ur Culture Indicated? SARS-CoV-2 (PCR) Blood Type Antibody Screen Crossmatch 12/23/20 12/23/20 04:28 12:59 WBC RBC Hgb 7.5 L Hct 22.5 L MCV MCH MCHC RDW Plt Count Neut % (Auto) Lymph % (Auto) [place] % (Auto) Eos % (Auto) Baso % (Auto) Neut # (Auto) Lymph # (Auto) [place] # (Auto) Eos # (Auto) Baso # (Auto) PT INR APTT Sodium Potassium Chloride Carbon Dioxide BUN Creatinine Estimated GFR BUN/Creatinine Ratio Glucose Lactate Calcium Magnesium Total Bilirubin AST ALT Alkaline Phosphatase Total Protein Albumin Globulin Albumin/Globulin Ratio Procalcitonin 3.35 H Urine Color Urine Appearance Urine pH Ur Specific [place] Urine Protein Urine Glucose (UA) Urine Ketones Urine Occult Blood Urine Nitrate Urine Bilirubin Urine Urobilinogen Ur Leukocyte Esterase Urine RBC Urine WBC Ur Squamous Epith Cells Amorphous Sediment Urine Bacteria Urine Mucus Ur Culture Indicated? SARS-CoV-2 (PCR) Blood Type Antibody Screen Crossmatch [facility] Medical History (Updated 12/23/20 @ 04:15 by JONATHAN Sanders) Adult general medical exam Bladder cancer (~2019) Deep vein thrombosis (DVT) of proximal lower extremity Elevated fasting glucose Hx of bladder cancer Lower back pain Surgical History (Updated 12/23/20 @ 04:15 by JONATHAN Sanders) Anesthesia Bladder cancer (~2019) History of open heart surgery (~1969) History of prostatectomy History of urostomy Family History (Updated 12/23/20 @ 04:15 by JONATHAN Sanders) Father Alzheimer's disease Mother Stroke Social History Smoking Status: Former smoker Assessment & Plan Assessment & Plan narrative: 55-year-old male with a past medical history of bladder cancer (June 2020), status post bladder resection and prostatectomy with urostomy, status post chemotherapy under the care of [facility] ([facility]) and chronic back pain who presents to the ER at the request of [facility] to follow-up on elevated serum calcium and is found to have urosepsis and anemia. 1. Sepsis due to urinary tract infection, acute, present on admission, active -the patient presents with sepsis markers including leukocytosis at 30.5 with neutrophils 26,900, mean arterial pressure of 64, increased creatinine at 1.36, procalcitonin is 3.48 and lactic acid of 2.8. Patient is on apixaban however INR is markedly elevated at 2.3 beyond typical for the medication. Patient is afebrile and his only complaint is fatigue which is nonspecific and likely multifactorial in his case. -the patient has had a bladder resection and prostatectomy with urostomy, urine is positive for trace protein, positive for blood, nitrites, leukocyte esterase, wbc's and bacteria. -patient received sepsis bolus in the ER of 30 mL per kg, then continue saline at 150 cc/hour. Now drinking well and will stop for now -ordered Zosyn 3.375 g IV every 6 hours, patient received 1st dose of Zosyn 4.5 g IV in the emergency department. -will recheck CBC and procalcitonin in the morning. Moderate hypercalcemia, acute, present on admission, active -patient only complains of fatigue but does endorse high urine output from his urostomy. No complaints of headache or thirst, body aches or bone pain, nausea or constipation. -the patient received sepsis bolus, ordered normal saline 150 cc/hour. -will recheck BMP at 7pm. Normochromic normocytic anemia, present on admission, active. -patient's occurring undergoing investigational interleukin 7 therapy for his bladder cancer. -his hemoglobin on admission is 7.0 and was 7.9 on 12/11/2020. -the patient is receiving large volume IV fluid treatment of hypercalcemia which will further dropped his hemoglobin. The patient is typed and screened. -ordered H&H at 7pm and with morning labs. Bladder cancer, chronic, stable -bladder cancer was diagnosed in June of 2020. He has since undergone bladder resection and prostatectomy with formation of urostomy. -the patient has just recently received his 3rd dose of investigational interleukin 7 therapy. -he is following with [facility] and is sent to the ER following abnormal monitoring labs with hypercalcemia at 12. VTE prophylaxis: Anticoagulated on apixaban IV fluid: Normal saline 150 cc/hour Diet: Regular Code status: Full code, the patient designates his sister Selena to be his surrogate decision maker. The patient is admitted to the hospital due to the severity of his symptoms requiring a complex treatment plan to treat his urosepsis hypercalcemia and anemia prevent complications or adverse events. The patient is admitted as an inpatient with expected length of stay to be greater than 2 midnights Quality VTE Deep Vein Thrombosis/Pulmonary Embolism Present on Admission: Yes
--- NOTE | 2020-12-23 15:37 | CM.DANOTE ---
DCP Note Patient is 55 yo male with [employer] and Medicaid insurance. Per RN and MD, patient was feeling poorly, wanting to rest and was not able to meet with coordinator cardiopulmonary services. Patient's H&H is low, patient was given a unit of blood but no active signs of bleeding. Plan: follow for bedside assessment for d/c needs tomorrow. Sondra Kapoor MSW
[2020-12-23] MEDS: OXYCODONE IR 10 MG TABLET PO (19:02)
[2020-12-23 19:20] LABS: Hemoglobin 7.7 g/dL (13.5-17.5); Mean Corpuscular HGB Conc 32.6 % (30-36); Mean Corpuscular Hemoglobin 27.3 PG (26-34); Mean Corpuscular Volume 83.9 fL (80-100); Red Blood Cell Count 2.81 X10^6/uL (4.5-5.9); Red Cell Distribution Width 16.8 % (11.6-14.8)
[2020-12-23 19:21] LABS: BUN Creatinine Ratio 24.2 (6-22); Blood Urea Nitrogen 29 mg/dL (9-20); Calcium 11.3 mg/dL (8.4-10.2); Carbon Dioxide 21 mmol/L (22-32); Chloride 101 mmol/L (98-107); Estimated Glomerular Filt Rate > 60.0 mL/min (>60); Glucose 100 mg/dL (70-100); HEMOLYSIS < 15 (0-50); Hematocrit 23.6 % (41-53); Platelet Count 704 X10^3/uL (150-400); Potassium 3.8 mmol/L (3.4-5.1); Sodium 129 mmol/L (137-145); White Blood Cell Count 26.9 X10^3/uL (4.5-11.0)
[2020-12-24] VITALS (10 sets, daily range): BP systolic 97–114; BP diastolic 56–61; PULSE 83–104; RESP 12–18; TEMP 36.5–37.2; O2SAT 92–99
[2020-12-24] MEDS: OXYCODONE IR 10 MG TABLET PO ×4 (00:45→23:01)
[2020-12-24] MEDS: PIPERACILLIN-TAZO 3.375 GM/50 ML FROZ.PIGGY IV ×2 (00:55→09:11)
[2020-12-24] MEDS: MORPHINE ER 15 MG TABLET PO ×3 (05:38→21:15)
[2020-12-24 05:59] LABS: Hematocrit 22.9 % (41-53); Hemoglobin 7.6 g/dL (13.5-17.5); Mean Corpuscular HGB Conc 32.9 % (30-36); Mean Corpuscular Hemoglobin 27.5 PG (26-34); Mean Corpuscular Volume 83.6 fL (80-100); Platelet Count 714 X10^3/uL (150-400); Red Blood Cell Count 2.74 X10^6/uL (4.5-5.9); Red Cell Distribution Width 16.9 % (11.6-14.8); White Blood Cell Count 28.1 X10^3/uL (4.5-11.0)
[2020-12-24 06:04] LABS: INR 2.3 (0.9-1.3); Prothrombin Time 26.3 SECONDS (10.1-12.7)
[2020-12-24 06:09] LABS: BUN Creatinine Ratio 23.1 (6-22); Blood Urea Nitrogen 28 mg/dL (9-20); Calcium 11.6 mg/dL (8.4-10.2); Carbon Dioxide 23 mmol/L (22-32); Chloride 100 mmol/L (98-107); Estimated Glomerular Filt Rate > 60.0 mL/min (>60); Glucose 99 mg/dL (70-100); HEMOLYSIS < 15 (0-50); Potassium 3.6 mmol/L (3.4-5.1); Sodium 129 mmol/L (137-145)
--- NOTE | 2020-12-24 06:36 | PC.NURSE ---
Sales Account Executive Note-Patient slept with RLE elevated on pillows, either on back or Lt side. MS contin given as scheduled, 10mg oxycodone for breakthrough. SR, VSS, afebrile. 900ml jana UOP. No s/s bleeding.
[2020-12-24] MEDS: SODIUM CHLORIDE 0.9% 1,000 ML 150 ML IV ×2 (09:08→17:01)
[2020-12-24] MEDS: APIXABAN 5 MG TABLET PO ×2 (09:11→20:20)
[2020-12-24] MEDS: ACETAMINOPHEN 325 MG TABLET 1000 MG PO ×2 (09:11→20:20)
[2020-12-24] MEDS: DOCUSATE 100 MG CAPSULE PO ×2 (09:11→20:19)
[2020-12-24] MEDS: CEFTRIAXONE 1 GM/50 ML FROZ.PIGGY IV (11:39)
[2020-12-24] MEDS: GABAPENTIN 300 MG CAPSULE PO ×3 (11:39→20:20)
--- NOTE | 2020-12-24 12:43 | P.PN_ITS ---
Subjective Subjective Date Patient Seen: 12/24/20 Time Patient Seen: 08:43 Interval history: Today he is feeling improved with less fatigue. WBC still rising, and calcium still rising. Otherwise he has no complaints currently. Exam Vital Signs (past 8 hours): - 12/24/20 05:45 12/24/20 09:28 12/24/20 12:24 Temperature 98.1 F 98.0 F Pulse Rate 92 H 83 Respiratory Rate 18 14 Blood Pressure 103/59 L 97/56 L Pulse Oximetry 96 94 92 Oxygen Delivery Method Room Air Oxygen Flow Rate 0 Narrative Exam Narrative: GENERAL APPEARANCE: well developed, well nourished, in no acute distress. HEENT: Normocephalic, PERRLA, conjunctiva clear, EOMs intact without nystagmus, mucous membranes are pink and dry NECK/THYROID: neck supple, no JVD, no thyromegaly, trachea midline. LYMPH NODES: no cervical or supraclavicular lymphadenopathy. SKIN: [place], warm and dry. HEART: regular rate and rhythm, S1-S2, no murmur, no rubs or gallops, brisk capillary refill, no edema LUNGS: clear to auscultation bilaterally, no coarseness crackles or wheezing, no cough present CHEST: Symmetrical movement, no accessory muscle use, good tidal volume. ABDOMEN: urostomy right upper/mid abdomen, stoma is red and moist, abdomen is soft, nontender to palpation, no organomegaly, active bowel tones BACK: Right low back pain palpation EXTREMITIES: Right leg pain, trace to 1+ edema, mild calf/popliteal tenderness, distal CMS intact, strength 5/5 and symmetrical, no cyanosis or clubbing. NEUROLOGIC: AAO x4, no focal neurologic deficits, cranial nerves II-XII grossly intact, sensation intact to light touch, hearing grossly normal to speech. PSYCH: pleasant mood Objective Labs Result Diagrams: 12/24/20 05:30 12/24/20 05:30 Labs: Laboratory Results - last 24 hr 12/23/20 12/23/20 12/23/20 12:59 18:59 18:59 WBC 26.9 H RBC 2.81 L Hgb 7.5 L 7.7 L Hct 22.5 L 23.6 L MCV 83.9 MCH 27.3 MCHC 32.6 RDW 16.8 H Plt Count 704 H PT INR Sodium 129 L Potassium 3.8 Chloride 101 Carbon Dioxide 21 L BUN 29 H Creatinine 1.20 Estimated GFR > 60.0 BUN/Creatinine Ratio 24.2 H Glucose 100 Calcium 11.3 H 12/24/20 12/24/20 12/24/20 05:30 05:30 05:30 WBC 28.1 H RBC 2.74 L Hgb 7.6 L Hct 22.9 L MCV 83.6 MCH 27.5 MCHC 32.9 RDW 16.9 H Plt Count 714 H PT 26.3 H INR 2.3 H Sodium 129 L Potassium 3.6 Chloride 100 Carbon Dioxide 23 BUN 28 H Creatinine 1.21 Estimated GFR > 60.0 BUN/Creatinine Ratio 23.1 H Glucose 99 Calcium 11.6 H [facility] Medical History (Updated 12/23/20 @ 04:15 by JONATHAN Sanders) Adult general medical exam Bladder cancer (~2019) Deep vein thrombosis (DVT) of proximal lower extremity Elevated fasting glucose Hx of bladder cancer Lower back pain Surgical History (Updated 12/23/20 @ 04:15 by JONATHAN Sanders) Anesthesia Bladder cancer (~2019) History of open heart surgery (~1969) History of prostatectomy History of urostomy Family History (Updated 12/23/20 @ 04:15 by JONATHAN Sanders) Father Alzheimer's disease Mother Stroke Social History Smoking Status: Former smoker Assessment & Plan Assessment & Plan narrative: 55-year-old male with a past medical history of bladder cancer (June 2020), status post bladder resection and prostatectomy with urostomy, status post chemotherapy under the care of [facility] ([facility]) and chronic back pain who presents to the ER at the request of [facility] to follow-up on elevated serum calcium and is found to have urosepsis and anemia. 1. Sepsis due to urinary tract infection, acute, present on admission, active -the patient presents with sepsis markers including leukocytosis at 30.5 with neutrophils 26,900, mean arterial pressure of 64, increased creatinine at 1.36, procalcitonin is 3.48 and lactic acid of 2.8. Patient is on apixaban however INR is markedly elevated at 2.3 beyond typical for the medication. -the patient has had a bladder resection and prostatectomy with urostomy, urine is positive for klebsiella and citrobacter sensitive to ceftriaxone so will dax marrufo to ceftriaxone -continuining on iv fluids for borderline low blood pressure Moderate hypercalcemia, acute, present on admission, active -patient only complains of fatigue but does endorse high urine output from his urostomy. No complaints of headache or thirst, body aches or bone pain, nausea or constipation. -calcium rising despite continued fluids, so will increase IVF -corrected calcium 12.7 today Normochromic normocytic anemia, present on admission, active. -patient's occurring undergoing investigational interleukin 7 therapy for his bladder cancer. -his hemoglobin on admission is 7.0 and was 7.9 on 12/11/2020. -hgb now stable at 7.6 Bladder cancer, chronic, stable -bladder cancer was diagnosed in June of 2020. He has since undergone bladder resection and prostatectomy with formation of urostomy. -the patient has just recently received his 3rd dose of investigational interleukin 7 therapy. -he is following with [facility] and is sent to the ER following abnormal monitoring labs with hypercalcemia at 12. DVT, chronic -continued on apixaban here -no acute symptoms or changes VTE prophylaxis: Anticoagulated on apixaban IV fluid: Normal saline 125 cc/hour Diet: Regular Code status: Full code, the patient designates his sister Selena to be his surrogate decision maker. The patient is admitted to the hospital due to the severity of his symptoms requiring a complex treatment plan to treat his urosepsis hypercalcemia and anemia prevent complications or adverse events. The patient is admitted as an inpatient with expected length of stay to be greater than 2 midnights Quality VTE Deep Vein Thrombosis/Pulmonary Embolism Present on Admission: Yes
--- NOTE | 2020-12-24 15:10 | CM.DPC ---
DCP Cont: Per MD, pt making progress but not medically stable to d/c yet today but potentially tomorrow and no identified barriers or needs at d/c. Per RN, pt's H&H is now stable after receiving a couple units of blood and pt back on fluids and not much appetite and sleeping most of the day. SW met briefly bedside with pt and explained role and he confirms that he is hopeful for d/c home tomorrow but states he is too tired and not feeling well to discuss further at this time and requests DCP discussion more tomorrow. Plan: SW to follow closely with pt tomorrow to confirm he is safe for d/c home and if he has supports enough to assist and transport home when stable. JUAN R Mercado
[2020-12-24 15:15] LABS: Calcium 11.6 mg/dL (8.4-10.2)
[2020-12-25 00:08] VITALS: BP 112/62; PULSE 94; RESP 12; TEMP 36.4; O2SAT 98
[2020-12-25 01:00] VITALS: O2SAT 98
[2020-12-25 04:54] VITALS: BP 118/63; PULSE 98; RESP 13; TEMP 36.8; O2SAT 97
[2020-12-25] MEDS: OXYCODONE IR 10 MG TABLET PO ×2 (04:55→11:43)
[2020-12-25 05:00] VITALS: O2SAT 97
[2020-12-25 05:05] LABS: Add Manual Diff / Slide Review NO; Basophils Absolute Auto 100 /uL (0-100); Basophils Percent Auto 0.5 % (0-2); Eosinophils Absolute Auto 900 /uL (0-450); Eosinophils Percent Auto 3.1 % (2-4); Hematocrit 23.2 % (41-53); Hemoglobin 7.5 g/dL (13.5-17.5); Lymphocytes Absolute Auto 1500 /uL (1100-4500); Lymphocytes Percent Auto 5.3 % (25-40); Mean Corpuscular HGB Conc 32.3 % (30-36); Mean Corpuscular Hemoglobin 27.5 PG (26-34); Mean Corpuscular Volume 85.2 fL (80-100); Monocytes Absolute Auto 1300 /uL (0-900); Monocytes Percent Auto 4.5 % (3-14); Neutrophils Absolute Auto 24900 /uL (1500-7000); Neutrophils Percent Auto 86.6 % (50-75); Platelet Count 710 X10^3/uL (150-400); Red Blood Cell Count 2.72 X10^6/uL (4.5-5.9); Red Cell Distribution Width 17.3 % (11.6-14.8); White Blood Cell Count 28.8 X10^3/uL (4.5-11.0)
[2020-12-25 05:08] LABS: BUN Creatinine Ratio 22.5 (6-22); Blood Urea Nitrogen 23 mg/dL (9-20); Calcium 11.6 mg/dL (8.4-10.2); Carbon Dioxide 20 mmol/L (22-32); Chloride 103 mmol/L (98-107); Estimated Glomerular Filt Rate > 60.0 mL/min (>60); Glucose 95 mg/dL (70-100); HEMOLYSIS < 15 (0-50); Potassium 3.6 mmol/L (3.4-5.1); Sodium 129 mmol/L (137-145)
[2020-12-25] MEDS: MORPHINE ER 15 MG TABLET PO (06:03)
[2020-12-25] MEDS: SODIUM CHLORIDE 0.9% 1,000 ML 150 ML IV ×2 (06:54)
[2020-12-25 08:00] VITALS: BP 108/60; PULSE 95; RESP 16; TEMP 36.7; O2SAT 95
[2020-12-25] MEDS: GABAPENTIN 300 MG CAPSULE PO (08:30)
[2020-12-25] MEDS: APIXABAN 5 MG TABLET PO (08:30)
[2020-12-25] MEDS: DOCUSATE 100 MG CAPSULE PO (08:30)
[2020-12-25] MEDS: CEFTRIAXONE 1 GM/50 ML FROZ.PIGGY IV (11:07)
[2020-12-25 12:00] VITALS: BP 116/67; PULSE 88; RESP 19; TEMP 36.7; O2SAT 95
--- NOTE | 2020-12-25 12:12 | CM.DPC ---
DCP: assessment: case received and discussed in Team Rounds. Dr. Galvez stated that pt wished to d/c today and that he was clearing him for same. He will be following up with oncology. Met briefly with pt. He stated that his sister Selena, who was currently staying with him, would be picking him up today. P: home today.
--- NOTE | 2020-12-25 13:56 | PC.NURSE ---
Reviewed dc packet and educational materials with pt and sister at bedside. Instructed pt to keep his already scheduled appts. Instructed pt that rx was sent to [facility] in [place] electronically. Educated to disease process and rx. Reviewed med regimen, scheduling, next doses due. Pt and sister verbalize understanding and have no questions at this time. Port was deaccessed (see IV charting).
--- NOTE | 2020-12-25 21:43 | PM.DS.1 ---
History of Present Illness History of Present Illness Chief complaint: ABNORMAL LABS Narrative: Per Oliverio Oconnell on 12/23/20: Mr. Anish Schultz is a 55-year-old male with a past medical history of bladder cancer (June 2020), status post bladder resection and prostatectomy with urostomy, status post chemotherapy under the care of [facility] [place] [facility]) and chronic back pain who presents to the ER at the request of [facility] following routine labs finding an elevated calcium at 12. He has ongoing right leg pain for which he was seen in the emergency department on 12/11/2020 very presented for right lower extremity pain finding a DVT. Venous ultrasound identified occlusive DVT of the right femoral and popliteal veins. The patient was negative for pulmonary emboli. The patient reports no systemic symptoms other than fatigue. He denies complaints of fevers or chills, no body aches or bone pain. He has had no complaints of mental confusion or dizziness. He denies chest pain or palpitations, shortness of breath cough or wheezing. He denies abdominal pain, no changes in bowel habits. His urostomy dysfunction without complication. The patient has ongoing right leg pain and uses crutches or walker for mobility. Upon arrival to the ER the patient's temperature 98.8?, heart rate of 76 blood pressure of 90/52, respiratory rate of 20 with saturation of 96%. Chest x-ray is unremarkable. Twelve lead EKG finds sinus rhythm at a rate of 94 without ectopy or block and nonspecific ST T-wave changes. On laboratory analysis the patient has white count of 30.5 with neutrophils of 26,900 and monocytes elevated at 1300, hemoglobin is 7.0, hematocrit of 22 and platelets of 879. And has a PT of 25.8, INR of 2.3, PTT of 29. The patient is hyponatremic with a sodium of 128. His BUN is 43 with a creatinine of 1.36. His calcium is 13.0. His nonfasting glucose is 125. He has lactate of 2.8 S down to 1.1 on recheck. His procalcitonin is elevated at 3.48. Urinalysis positive for trace protein, positive for blood, nitrites, leukocyte esterase, WBCs and bacteria. While in the ER the patient receives a sepsis bolus of 30 mL per kg, Zosyn 4.5 g IV and is typed and screened. The patient is admitted to the hospitalist service for hypercalcemia, urosepsis and anemia. Discharge Providers Provider Date of admission: 12/22/20 19:51 Discharge Date: 12/25/20 Primary care physician: JONATHAN Renner Consults: 12/22/20 20:34 Consult to Discharge Planning Routine Comment: Discharge provider: Yunior Galvez MD Summary Hospital Course Discharge Diagnosis: 1. Urinary tract infection, with sepsis 2. Acute kidney injury 3. Moderate hypercalcemia, acute 4. Anemia requiring blood transfusion 5. Bladder cancer, chronic 6. DVT, chronic 7. Hyponatremia, mild Hospital Course: Mr. Schultz was admitted initially after having an episode of vomiting and nausea and feeling fatigued. He was also noted to have elevated calcium level as an outpatient for which he was having no symptoms aside from possibly some fatigue. He was noted to have a positive urine infection with klebsiella and citrobacter and started on antibiotics, which were narrowed to ceftriaxone based on sensitivities. He had negative blood cultures at 72 hours. He initially had a low blood pressure and elevated lactate which resolved with fluids. His calcium initially was 13 and improved to 11.6 with IV fluids. He also had a drop in his hemoglobin to 5.9 and required 2U PRBC transfusion and his hemoglobin remained stable in the mid 7s. His WBC was elevated on admission at 30, and remained elevated in the 20s at discharge. Despite this he was requesting to go home as he was feeling back to his baseline. He was having no fevers/chills. He had no abdominal pain, no diarrhea. No coughing or shortness of breath. His port site and urostomy site looked clean and without evidence of infection. His blood cultures were negative. He had continued pain from a DVT, but this had no acute changes in the hospital, and CTA did not demonstrate any evidence of acute infection or PE. He initially had a mild TERRI with initial creatinine of 1.28, that improved to 1.02 on discharge. He was encouraged to remain hydrated due to his elevated calcium. Given his continued elevated white count he was discharged with 5 more days of antibiotics with levaquin which both bacteria in his urine were sensitive to. He was given strict return precautions about returning to the ER if he had any worsening symptoms for reevaluation. He has close follow up early next week with his cancer team to further evaluate him planned for [place]. The rest of his medical issues in the hospital remained controlled. He should continue to be monitored for his anemia, and leukocytosis and hypercalcemia which may be in the setting of his malignancy and his experimental IL7 therapy he is receiving. Status at Discharge Cognitive/behavioral status at discharge: oriented Functional status at discharge: independent ambulation Overall status at discharge: patient is progressing back to baseline Exam Vital Signs (past 8 hours): Oxygen Delivery Method Room Air Oxygen Flow Rate 0 Narrative Exam Narrative: GENERAL APPEARANCE: no acute distress. HEENT: Normocephalic, PERRLA, conjunctiva clear, EOMs intact without nystagmus, mucous membranes are pink and dry NECK/THYROID: neck supple, no JVD. SKIN: [place], warm and dry. HEART: regular rate and rhythm, S1-S2, no murmur, no rubs or gallops, brisk capillary refill, no edema LUNGS: clear to auscultation bilaterally, no coarseness crackles or wheezing, no cough present CHEST: Symmetrical movement, no accessory muscle use, good tidal volume. ABDOMEN: urostomy right upper/mid abdomen, stoma is moist, abdomen is soft, nontender to palpation, no organomegaly, active bowel tones EXTREMITIES: Right leg pain, no edema, mild calf/popliteal tenderness, no erythema, strength 5/5 and symmetrical, no cyanosis or clubbing. NEUROLOGIC: AAO x4, no focal neurologic deficits PSYCH: pleasant mood Objective Labs Result Diagrams: 12/25/20 04:35 12/25/20 04:35 Labs: Laboratory Results - last 24 hr 12/25/20 12/25/20 04:35 04:35 WBC 28.8 H RBC 2.72 L Hgb 7.5 L Hct 23.2 L MCV 85.2 MCH 27.5 MCHC 32.3 RDW 17.3 H Plt Count 710 H Neut % (Auto) 86.6 H Lymph % (Auto) 5.3 L [place] % (Auto) 4.5 Eos % (Auto) 3.1 Baso % (Auto) 0.5 Neut # (Auto) 98271 H Lymph # (Auto) 1500 [place] # (Auto) 1300 H Eos # (Auto) 900 H Baso # (Auto) 100 Sodium 129 L Potassium 3.6 Chloride 103 Carbon Dioxide 20 L BUN 23 H Creatinine 1.02 Estimated GFR > 60.0 BUN/Creatinine Ratio 22.5 H Glucose 95 Calcium 11.6 H PFSH Medical History (Updated 12/23/20 @ 04:15 by JONATHAN Sanders) Adult general medical exam Bladder cancer (~2019) Deep vein thrombosis (DVT) of proximal lower extremity Elevated fasting glucose Hx of bladder cancer Lower back pain Surgical History (Updated 12/23/20 @ 04:15 by JONATHAN Sanders) Anesthesia Bladder cancer (~2019) History of open heart surgery (~1969) History of prostatectomy History of urostomy Family History (Updated 12/23/20 @ 04:15 by JONATHAN Sanders) Father Alzheimer's disease Mother Stroke Social History Smoking Status: Former smoker Discharge Plan Discharge Plan Patient Disposition: Home Provider Discharge Comment: Mr Schultz came in with fatigue. He was found to have high white blood cell count, low hemoglobin in the 5s, and high calcium of 13. He was transfused 2U blood, and had no evidence of any bleeding. His hemoglobin remained stable after that in the 7s. He had a urine infection found that was sensitive to multiple antibiotics and started on ceftriaxone. he will be discharged with 5 more days of levofloxacin to complete his treatment. For his calcium he was on IV fluids and his calcium on discharge improved to 11.5 with no symptoms. He was encouraged to continue drinking lots of fluids for his calcium. Of note his white count remained elevated, and this should be followed as an outpatient. It is not clear if this is related to his medication, but otherwise he was not having any other infectious symptoms. No cough, diarrhea, and his blood cultures remained negative. He will follow up with his cancer team early next week. Discharge orders & Medications Prescriptions: New levofloxacin 750 mg tablet 750 mg PO DAILY Qty: 5 RF: 0 Continued docusate sodium [Colace] 100 mg Capsule 100 mg PO BID RF: 0 morphine 15 mg tablet extended release 15 mg PO TID RF: 0 gabapentin 100 mg capsule 100 - 300 mg PO TID RF: 0 acetaminophen 500 mg Capsule 1,000 mg PO Q6H PRN (Reason: pain / fever) RF: 0 oxycodone 5 mg tablet 5 - 10 mg PO TID PRN (Reason: Pain (Scale Score 7-10)) RF: 0 apixaban 5 mg (74 tabs) tablets,dose pack See Rx Instructions .ROUTE .COMPLEX Qty: 74 RF: 0 Follow up/Referrals: Marito May ARNP [Primary Care Provider] - Discharge Health Status Multidrug resistant organism: No MDRO Diet/Activity/Treatments Diet: Diet as Tolerated Skin/Wound/Dressing Care Report to your healthcare provider any signs of infection, such as:: chills, fever, night sweats and increased pain Visit Report/Discharge Packet Instructions: DI for Urinary Tract Infection (UTI), Levofloxacin Discharge Data Primary Care Provider: Marito May Quality VTE Deep Vein Thrombosis/Pulmonary Embolism Present on Admission: Yes
== END 2020-12-25 14:00 | disposition home or self-care (01) | DRG 720 ==
LOC: ED 18:39 → AC 19:51 → ICU 20:41
PROVIDERS: Emergency Medicine; Internal Medicine; Admitting Provider Nurse Practitioner Adult Health; Emergency Provider Emergency Medicine; PCP Registered Nurse; Referring Provider Emergency Medicine; Visit Provider Nurse Practitioner Adult Health
DX: A41.9 Sepsis, unspecified organism (principal); N39.0 Urinary tract infection, site not specified; E83.52 Hypercalcemia; I95.9 Hypotension, unspecified; D68.8 Other specified coagulation defects; R65.20 Severe sepsis without septic shock; N17.9 Acute kidney failure, unspecified; D64.9 Anemia, unspecified; E87.1 Hypo-osmolality and hyponatremia; C67.9 Malignant neoplasm of bladder, unspecified; Z93.6 Other artificial openings of urinary tract status; M54.9 Dorsalgia, unspecified; G89.29 Other chronic pain; Z20.822 Contact with and (suspected) exposure to COVID-19; Z87.891 Personal history of nicotine dependence; Z86.718 Personal history of other venous thrombosis and embolism; Z79.01 Long term (current) use of anticoagulants
CPT/HCPCS: 36415; 36430; 36591; 71045; 80048; 80053; 81001; 82310; 83605; 83735; 84145; 85014; 85018; 85025; 85027; 85610; 85730; 86850; 86900; 86901; 87040; 87077; 87086; 87186; 87635; 93005; 96361; 96365; 99284; P9016; P9040; J1642; J2543